=== PATIENT | female | born 1950 | race Caucasian/White ===

== ENCOUNTER 2017-11-08 06:49 | Inpatient (IN) | payer OTHER ==
[2017-11-08] MEDS ORDERED: morphine CARPU-JECT 4 MG/1 ML DISP.SYRIN IVPUSH ONE (07:20)
[2017-11-08] MEDS ORDERED: ONDANSETRON 4 MG/2 ML VIAL IVPUSH ONE (07:25)
[2017-11-08] MEDS ORDERED: SODIUM CHLORIDE 1,000 ML IV STA (07:27)
[2017-11-08] MEDS ORDERED: ONDANSETRON 4 MG/2 ML VIAL ONE ×2 (07:52→15:43)
[2017-11-08] MEDS ORDERED: morphine CARPU-JECT 10 MG/1 ML DISP.SYRIN ONE (07:52)
[2017-11-08 08:17] LABS: BASO % 1.4 % (0-2.0); EOS % 0.6 % (0-4.5); HEMATOCRIT 39.4 % (32.4-45.2); HEMOGLOBIN 12.7 GM/dL (10.7-15.3); LYMPH % 10.5 % (8-40); MCH 29.2 pg (25.7-33.7); MCHC 32.4 g/dl (32.0-36.0); MEAN CELL VOLUME 90.2 fl (80-96); MEAN PLT VOLUME 9.8 fl (7.5-11.1); MONO % 5.8 % (3.8-10.2); NEUT % 81.7 % (42.8-82.8); PLATELET COUNT 156 K/MM3 (134-434); RBC 4.36 M/mm3 (3.60-5.2); RDW 14.1 % (11.6-15.6); WHITE BLOOD COUNT 10.8 K/mm3 (4.0-10.0)
--- NOTE | 2017-11-08 08:27 | PDOC ---
History of Present Illness - General History Source: Patient - History of Present Illness Timing/Duration: reports: constant, getting worse Abdominal Pain Onset Location: reports: RLQ Pain Radiation: reports: no radiation <Stan Villatoro - Last Filed: 11/08/17 12:26> <Osbaldo Solorzano - Last Filed: 11/08/17 16:56> - General Chief Complaint: Pain, Acute Stated Complaint: ABD PAIN Time Seen by Provider: 11/08/17 07:19 Past History - Past Medical History COPD: No HTN: Yes - Suicide/Smoking/Psychosocial Hx Smoking History: Never smoked <Stan Villatoro Last Filed: 11/08/17 12:26> <Osbaldo Solorzano - Last Filed: 11/08/17 16:56> - Past Medical History Allergies/Adverse Reactions: Allergies Allergy/AdvReac Type Severity Reaction Status Date / Time No Known Allergies Allergy Verified 11/08/17 07:00 Home Medications: Ambulatory Orders Acetaminophen/Caffeine/Butalb [Fioricet -] 1 tab PO Q4H PRN 11/08/17 Amlodipine Besylate [Norvasc -] 5 mg PO DAILY 11/08/17 Review of Systems - Review of Systems Constitutional: No: Chills, Fever ABD/GI: Yes: Nausea, Vomiting, Abdominal cramping. No: Constipated, Diarrhea : No: Dysuria, Flank Pain, Hematuria <Stan Villatoro Last Filed: 11/08/17 12:26> *Physical Exam - Vital Signs Last Vital Signs Temp Pulse Resp BP Pulse Ox 79 16 131/75 100 11/08/17 07:01 11/08/17 07:01 11/08/17 07:01 11/08/17 07:01 - Physical Exam General Appearance: Yes: Appropriately Dressed, Moderate Distress HEENT: positive: Normal Voice Neck: positive: Supple Respiratory/Chest: negative: Respiratory Distress Gastrointestinal/Abdominal: positive: Normal Bowel Sounds, Tender (2x1cm exquisitely tender indurated mass located below site of inguinal ligament, C/F possible incarcerated/strangulated femoral hernia), Soft. negative: Distended, Guarding, Rebound <Stan Villatoro Last Filed: 11/08/17 12:26> - Vital Signs Last Vital Signs Temp Pulse Resp BP Pulse Ox 79 18 156/89 99 11/08/17 14:26 11/08/17 14:26 11/08/17 14:26 11/08/17 14:26 <Osbaldo Solorzano - Last Filed: 11/08/17 16:56> ED Treatment Course - LABORATORY CBC & Chemistry Diagram: 11/08/17 07:30 11/08/17 07:30 - RADIOLOGY Radiology Studies Ordered: Category Date Time Status ABDOMEN & PELVIS CT WITH CONTR [CT] Stat CT Scan 11/08/17 07:24 Ordered <Stan Villatoro - Last Filed: 11/08/17 12:26> - LABORATORY CBC & Chemistry Diagram: 11/08/17 07:30 11/08/17 07:30 - ADDITIONAL ORDERS Additional order review: Laboratory Results 11/08/17 11/08/17 11/08/17 07:30 07:30 07:30 PT with INR 11.40 INR 1.01 Sodium 142 Potassium 3.6 Chloride 107 Carbon Dioxide 24 Anion Gap 11 BUN 13 Creatinine 0.8 Creat Clearance w eGFR > 60 Random Glucose 115 H Calcium 9.5 Total Bilirubin 0.4 AST 22 ALT 29 Alkaline Phosphatase 116 Total Protein 7.2 Albumin 4.0 Blood Type B POSITIVE Antibody Screen Negative 11/08/17 07:30 RBC 4.36 MCV 90.2 MCHC 32.4 RDW 14.1 MPV 9.8 Neutrophils % 81.7 Lymphocytes % 10.5 Monocytes % 5.8 Eosinophils % 0.6 Basophils % 1.4 - Medications Given in the ED: ED Medications Discontinued Medications Generic Name Dose Route Start Last Admin Trade Name Carlozq PRN Reason Stop Dose Admin Sodium Chloride 1,000 mls @ 1,000 mls/hr 11/08/17 07:27 11/08/17 08:00 Normal Saline - IV 11/08/17 08:26 1,000 mls/hr ASDIR STA Administration Piperacillin Sod/Tazobactam 100 mls @ 200 mls/hr 11/08/17 12:30 11/08/17 12: 32 Sod 4.5 gm/ Dextrose IVPB 11/08/17 12:59 200 mls/hr ONCE ONE Administration Lactated Ringer's 1,000 ml 11/08/17 12:00 11/08/17 12:31 Lactated Ringers Solution IV 11/08/17 12:01 1,000 ml ONCE ONE Administration Morphine Sulfate 4 mg 11/08/17 07:20 11/08/17 07:56 Morphine Injection - IVPUSH 11/08/17 07:21 4 mg ONCE ONE Administration Ondansetron HCl 4 mg 11/08/17 07:25 11/08/17 07:55 Zofran Injection IVPUSH 11/08/17 07:26 4 mg ONCE ONE Administration <Osbaldo Solorzano - Last Filed: 11/08/17 16:56> Medical Decision Making - Medical Decision Making 11/08/17 07:49 67-year-old female, history of hypertension, here with right lower quadrant pain. Patient reports severe right lower quadrant pain since last night that is worsening with multiple episodes of nonbilious, nonbloody, nausea, vomiting. Denies change in bowel movements, fever, chills, dysuria or hematuria. No history of similar pain in the past. Denies history of gallstones or kidney stones. see exam RLQ pain w/ n/v Stable but appears very uncomfortable w/ 2x1 cm area indurated mass to R groin, below site of inguinal ligament C/F possible incarcerated femoral hernia -pain control -zofran -IVF -labs -CT 11/08/17 10:30 CT read as incarcerated femoral hernia w/ resultant SBO and possible ischemia vs inflammation of herniated bowel. Pt stable at present and reports improvement in pain w/ morphine. Labs unremarkable, will send off a lactate level and get emergent surgery consult 11/08/17 10:34 11/08/17 10:[address] Prado of surgery, MD pritchett to ED. Patient made NPO and placed in Trendelenburg with ice pack over right groin as discussed with ED attending 11/08/17 11:30 Pt actively vomiting. Meds and NGT in progress. Dr Dinh currently at bedside. Patient to go the OR now. Abx ordered. Will admit to the hospitalist at this time as per discussion with surgery 11/08/17 12:05 <Stan Villatoro - Last Filed: 11/08/17 12:26> *DC/Admit/Observation/Transfer - Discharge Dispostion Admit: Yes <Stan Villatoro Last Filed: 11/08/17 12:26> <Osbaldo Solorzano - Last Filed: 11/08/17 16:56> Diagnosis at time of Disposition: Incarcerated femoral hernia - Discharge Dispostion Condition at time of disposition: Fair
[2017-11-08 08:28] LABS: INR 1.01 (0.82-1.09); PROTHROMBIN TIME (PATIENT) 11.4 SEC (9.98-11.88)
[2017-11-08 08:44] LABS: ALK PHOS 116 U/L (45-117); ANION GAP 11 (8-16); BILIRUBIN,TOTAL 0.4 mg/dL (0.2-1.0); BLOOD UREA NITROGEN 13 mg/dL (7-18); CALCIUM 9.5 mg/dL (8.5-10.1); CHLORIDE 107 mmol/L (98-107); CO2 24 mmol/L (21-32); CREATININE 0.8 mg/dL (0.55-1.02); GLUCOSE,RANDOM 115 mg/dL (74-106); POTASSIUM 3.6 mmol/L (3.5-5.1); SGOT/AST 22 U/L (15-37); SGPT/ALT 29 U/L (12-78); SODIUM 142 mmol/L (136-145); TOT PROT 7.2 g/dl (6.4-8.2)
--- NOTE | 2017-11-08 11:15 | CONSULT ---
Consult Consult Specialty:: general surgery Referred by:: cade muñoz - ED Reason for Consultation:: right femoral hernia - History of Present Illness Chief Complaint: right groin pain and vomiting History of Present Illness: 67 you female PMH HTN, s/p breast augmentation and tubal ligation is presented to the emergency department with pain in the right groin for 12 hours and multiple 5-6 episodes of bilious vomiting. She reports acute onset right lower abdominal pain last evening 11PM, associated with right leg pain as well with movement. 5-6 episodes of emesis since last night. She has not eaten since yesterday, passing flatus and had a normal BM yesterday. denies fever and chills. she has never had a similar episode of pain and emesis. She has not had previous upper or lower endoscopy. - History Source History Provided By: Patient, Family Member Limitations to Obtaining History: No Limitations - Past Medical History Cardio/Vascular: Yes: HTN - Past Surgical History Past Surgical History: Yes: Tubal Ligation Additional Surgical History: breast augmentation - Alcohol/Substance Use Hx Alcohol Use: Yes (socially ) History of Substance Use: reports: None - Smoking History Smoking history: Never smoked - Social History Place of : Other ([facility]) History of Recent Travel: Yes () Home Medications - Allergies Allergies/Adverse Reactions: Allergies Allergy/AdvReac Type Severity Reaction Status Date / Time No Known Allergies Allergy Verified 11/08/17 07:00 - Home Medications Home Medications: Ambulatory Orders Acetaminophen/Caffeine/Butalb [Fioricet -] 1 tab PO Q4H PRN 11/08/17 Amlodipine Besylate [Norvasc -] 5 mg PO DAILY 11/08/17 Review of Systems - Review of Systems Constitutional: denies: Chills, Fever Eyes: denies: Blurred Vision, Recent Change in Vision HENT: denies: Difficult Swallowing, Throat Pain Neck: denies: Lumps, Tenderness Cardiovascular: denies: Chest Pain, Palpitations Respiratory: denies: Cough, SOB Gastrointestinal: reports: Abdominal Pain, Bloating, Vomiting Genitourinary: denies: Burning, Discharge, Dysuria Musculoskeletal: denies: Back Pain, Muscle Pain, Muscle Weakness Integumentary: denies: Lesions, Rash Psychiatric: denies: Anxiety, Depression Physical Exam Vital Signs: Vital Signs Temperature Pulse Rate 79 11/08/17 07:01 Respiratory Rate 16 11/08/17 07:01 Blood Pressure 131/75 11/08/17 07:01 O2 Sat by Pulse Oximetry (%) 100 11/08/17 07:01 Vital Signs Period Temp Pulse Resp BP Sys/Cervantes Pulse Ox Last 24 Hr 79 16 131/75 100 Constitutional: Yes: Well Nourished, No Distress, Calm Eyes: Yes: Conjunctiva Clear, EOM Intact HENT: Yes: Atraumatic, Normocephalic Neck: Yes: Supple, Trachea Midline Cardiovascular: Yes: Regular Rate and Rhythm, S1, S2 Respiratory: Yes: Regular, CTA Bilaterally Gastrointestinal: Yes: Normal Bowel Sounds, Soft, Tenderness (right lower quadrant, exquisitely tender Right anterior thigh mass, non reducible.) Breast(s): Yes: Breast Implants Extremities: No: Cool, Cyanosis Edema: No Peripheral Pulses WNL: Yes Neurological: Yes: Alert, Oriented Psychiatric: Yes: Alert, Oriented Labs: CBC, BMP 11/08/17 07:30 11/08/17 07:30 Imaging - Results Cat Scan: Report Reviewed, Image Reviewed (incarcerated small bowel right femoral hernia.) Problem List - Problems (1) Incarcerated femoral hernia Assessment/Plan: 67 yo female with PMH HTN s/p breast augmentation surgery presents with acute onset abdominal pain and vomiting for 12 hours. Consistent with incarcerated possible strangulated femoral hernia on right. CT scan shows a loop of bowel. At bedside are two neices and sister. NPO and IVF hydration NGT decompression empiric IV antibiotics antiemetic OR for Exploratory laparotomy, possible bowel ressection, possible ostomy - Discussed with patient risks, benefits and alternatives of proposed porcedure including but not limited to bleeding, infection, injury to adjacent structures , leak or injury, intraabdominal abscess, need for further procedures, ; alternatives include antibiotics, delayed or no surgery - risks of this include failure of nonoperative therapy, perforation, sepsis, recurrence, . Patient desires to proceed with operation - will take to OR for above. Informed consent signed for same. Code(s): K41.30 - UNIL FEMORAL HERNIA, W OBST, W/O GANGRENE, NOT SPCF RECUR (2) Small bowel obstruction with strangulation or infarction Code(s): SFP2523 - (3) HTN (hypertension) Code(s): I10 - ESSENTIAL (PRIMARY) HYPERTENSION (4) Abdominal pain, right lower quadrant Code(s): R10.31 - RIGHT LOWER QUADRANT PAIN
[2017-11-08] MEDS ORDERED: PIPERACILLIN/TAZOB 4.5 GM/100 ML PREMIX BAG IVPB ONE (11:49)
[2017-11-08] MEDS ORDERED: LACTATED RINGERS SOLUTION 1000 ML INFUS.BAG IV ONE (12:00)
[2017-11-08] MEDS ORDERED: LACTATED RINGERS SOLUTION 1,000 ML/1,000 ML INFUS.BAG IV SCH (12:00)
--- NOTE | 2017-11-08 12:21 | HP ---
CHIEF COMPLAINT: " Right lower quadrant pain" PCP: No PCP HISTORY OF PRESENT ILLNESS: Patient is a Yakut speaking 67-year-old female presented to the ED with the chief complaint of Right lower quadrant pain" since 11 pm last night. As per the patient, she ate a small portion for dinner and a sip of wine. At around 11pm, she started having RLQ pain, especially in the right inguinal area, 10/10 in intensity, cramping in nature, non radiating. It was associated with bouts of dry cough, nausea and 4 episodes of vomiting. Vomitus contained mainly food particles, non projectile, non bilious, non bloody. Then she rushed to the ED for further evaluation. Pt reports she never had similar episodes before. Denies chest pain, sob, palpitation, headache, dizziness or loc. Last bowel movement yesterday. Patient also reports to have dysuria, increased frequency of urination since yesterday but denies incontinence or urgency. Sleep/Appetite normal prior to her illness. Has never done colonoscopy before. ER course was notable for: (1) Afebrile, hemodynamically stable, WBC 10.8 (2) CT abdomen/pelvis with contrast: Incarcerated femoral hernia with resultant Small bowel obstruction (3) IV NS, NG tube placement, IV Zosyn Recent Travel: None PAST MEDICAL HISTORY: Hypertension (requiring hospitalization at [place] for hypertensive urgency), active smoker LAST HOSPITALIZATION: 6 months ago for Hypertension. PAST SURGICAL HISTORY: Tubal ligation; Breast implants 15 yrs ago. Social History: Smoking: Active smoker, smokes 1/2 pack since 39 yrs Alcohol: Very rare , just sips of wine Drugs: Denies Family History: Non contributory Allergies No Known Allergies Allergy (Verified 11/08/17 07:00) HOME MEDICATIONS: Home Medications Medication Instructions Recorded Acetaminophen/Caffeine/Butalb 1 tab PO Q4H PRN 11/08/17 [Fioricet -] Amlodipine Besylate [Norvasc -] 5 mg PO DAILY 11/08/17 REVIEW OF SYSTEMS CONSTITUTIONAL: Present: loss of appetite Absent: fever, chills, diaphoresis, generalized weakness, malaise, weight change HEENT: Absent: rhinorrhea, nasal congestion, throat pain, throat swelling, difficulty swallowing, mouth swelling, ear pain, eye pain, visual changes CARDIOVASCULAR: Absent: chest pain, syncope, palpitations, irregular heart rate, lightheadedness , peripheral edema RESPIRATORY: Absent: cough, shortness of breath, dyspnea with exertion, orthopnea, wheezing, stridor, hemoptysis GASTROINTESTINAL: Present: Right lower quadrant abdominal pain, abdominal distension, nausea, vomiting Absent: diarrhea, constipation, melena, hematochezia GENITOURINARY: Absent: dysuria, frequency, urgency, hesitancy, hematuria, flank pain, genital pain MUSCULOSKELETAL: Absent: myalgia, arthralgia, joint swelling, back pain, neck pain SKIN: Absent: rash, itching, pallor HEMATOLOGIC/IMMUNOLOGIC: Absent: easy bleeding, easy bruising, lymphadenopathy, frequent infections ENDOCRINE: Absent: unexplained weight gain, unexplained weight loss, heat intolerance, cold intolerance NEUROLOGIC: Absent: headache, focal weakness or paresthesias, dizziness, unsteady gait, seizure, mental status changes, bladder or bowel incontinence PSYCHIATRIC: Absent: anxiety, depression, suicidal or homicidal ideation, hallucinations. PHYSICAL EXAMINATION Vital Signs - 24 hr 11/08/17 07:01 Pulse Rate 79 Respiratory 16 Rate Blood Pressure 131/75 O2 Sat by Pulse 100 Oximetry (%) GENERAL: Patient is lying in bed, in moderate abdominal pain, Awake, alert, and fully oriented. HEAD: Normal with no signs of trauma. EYES: EOM intact, no pallor or icterus. EARS, NOSE, THROAT: Ears normal. Moist mucous membranes. NECK: Supple. LUNGS: Breath sounds equal, clear to auscultation bilaterally. No wheezes, and no crackles. No accessory muscle use. HEART: Regular rate and rhythm, normal S1 and S2 without murmur, rub or gallop. ABDOMEN: Soft, tender to palpation in the right lower quadrant, not distended, normoactive bowel sounds, guarding +, rebound +. Hepatosplenomegaly couldn't be appreciated, deep palpation couldn't be done due to pain. Right inguinal area: A small mass is felt, mobile, non erythematouc MUSCULOSKELETAL: Normal range of motion at all joints. No bony deformities or tenderness. No CVA tenderness. UPPER EXTREMITIES: 2+ pulses, warm, well-perfused. No cyanosis. No clubbing. No peripheral edema. LOWER EXTREMITIES: 2+ pulses, warm, well-perfused. No calf tenderness. No peripheral edema. NEUROLOGICAL: Cranial nerves II-XII intact. Normal speech. Normal gait. PSYCHIATRIC: Cooperative. Good eye contact. Appropriate mood and affect. SKIN: Warm, dry, normal turgor, no rashes or lesions noted, normal capillary refill. Laboratory Results - last 24 hr 11/08/17 11/08/17 11/08/17 07:30 07:30 07:30 WBC 10.8 H RBC 4.36 Hgb 12.7 Hct 39.4 MCV 90.2 MCH 29.2 MCHC 32.4 RDW 14.1 Plt Count 156 MPV 9.8 Neutrophils % 81.7 Lymphocytes % 10.5 Monocytes % 5.8 Eosinophils % 0.6 Basophils % 1.4 PT with INR 11.40 INR 1.01 Sodium 142 Potassium 3.6 Chloride 107 Carbon Dioxide 24 Anion Gap 11 BUN 13 Creatinine 0.8 Creat Clearance w eGFR > 60 Random Glucose 115 H Calcium 9.5 Total Bilirubin 0.4 AST 22 ALT 29 Alkaline Phosphatase 116 Total Protein 7.2 Albumin 4.0 Blood Type Antibody Screen 11/08/17 07:30 WBC RBC Hgb Hct MCV MCH MCHC RDW Plt Count MPV Neutrophils % Lymphocytes % Monocytes % Eosinophils % Basophils % PT with INR INR Sodium Potassium Chloride Carbon Dioxide Anion Gap BUN Creatinine Creat Clearance w eGFR Random Glucose Calcium Total Bilirubin AST ALT Alkaline Phosphatase Total Protein Albumin Blood Type B POSITIVE Antibody Screen Negative ASSESSMENT/PLAN: Patient is an 67-year-old female with significant past medical history of Hypertension (h/o hypertensive urgency), active smoker presented to the ED with the chief complaint of Right lower quadrant pain" since 11 pm last night was found to have Incarcerated femoral hernia with possible SBO. # Incarcerated femoral hernia with possible SBO. c/o RLQ 10/10 pain x 1day, associated with nausea and [address] abdomen/Pelvis with IV Contrast showed: Incarcerated femoral hernia resulting into small bowel obstruction Pt was taken to the OR from ED for surgery, now currently in surgery Post surgery: Will keep her NPO IV Zosyn 3.375mg, (only if she gets bowel resection) as per ID IV Morphine 2mg Q3H IV Promethazine 12.5mg Q6H PRN (Qtc is prolonged so avoid Zofran and Reglan) Incentive spirometer Appreciate surgical consult # Hypertension-elevated likely due to pain Will hold her home Amlodipine 5mg IV Hydralazine 5mg Q6H PRN if BP > 165mmHg Reevaluate in am and adjust the dose. # Dysuria-r/o UTI UA uncollected IV hydration and antibiotics if she has UTI. # Active smoker Will offer nicotine patch Smoking cessation # Code Status: Full Code # Dispo: Duration of stay unknown. Illness, Investigation and Plan of care explained to the patient and her sister. They verbalized understanding. Case discussed with Dr. Tucker. Visit type - Emergency Visit Emergency Visit: Yes ED Registration Date: 11/08/17 Care time: The patient presented to the Emergency Department on the above date and was hospitalized for further evaluation of their emergent condition. - New Patient This patient is new to me today: Yes Date on this admission: 11/08/17 - Critical Care Critical Care patient: No
[2017-11-08] MEDS ORDERED: PIPERACILLIN/TAZOB 4.5 GM 4.5 GM/100 ML BAG IVPB ONE (12:28)
[2017-11-08] MEDS ORDERED: PIPERACILLIN/TAZOB 4.5 GM 4.5 GM in DEXTROSE 5%-WATER - 100 ML IVPB ONE (12:30)
[2017-11-08 13:52] VITALS: BMI 21.6
--- NOTE | 2017-11-08 14:10 | EKG ---
Test Reason : Blood Pressure : / mmHG Vent. Rate : 086 BPM Atrial Rate : 086 BPM P-R Int : 174 ms QRS Dur : 092 ms QT Int : 402 ms P-R-T Axes : 068 039 052 degrees QTc Int : 481 ms NORMAL SINUS RHYTHM POSSIBLE LEFT ATRIAL ENLARGEMENT NONSPECIFIC T WAVE ABNORMALITY PROLONGED QT ABNORMAL ECG NO PREVIOUS ECGS AVAILABLE CLINICAL CORRELATION IS RECOMMENDED Confirmed by JUD ROOT, ANNIE ([id number]) on 11/08/2017 2:09:57 PM Referred By: Confirmed By:ANNIE RENNER MD
[2017-11-08] MEDS ORDERED: ONDANSETRON 4 MG/2 ML VIAL IVPUSH PRN (14:35)
[2017-11-08] MEDS ORDERED: PROMETHAZINE HCL 25 MG/1 ML VIAL IVPB PRN (14:39)
[2017-11-08] MEDS ORDERED: hydrALAZINE HCL 20 MG/ML VIAL IVPUSH PRN ×2 (14:40→17:23)
[2017-11-08] MEDS ORDERED: MIDAZOLAM HCL 2 MG/2 ML SINGLE DOSE VIAL ONE (14:41)
[2017-11-08] MEDS ORDERED: PROPOFOL 20 ML ONE (14:41)
[2017-11-08] MEDS ORDERED: ROCURONIUM BROMIDE 50 MG/5 ML VIAL ONE (14:41)
--- NOTE | 2017-11-08 15:17 | PN ---
Teaching Attending Note Name of Resident: Yoly Strong ATTENDING PHYSICIAN STATEMENT I saw and evaluated the patient. I reviewed the resident's note and discussed the case with the resident. I agree with the resident's findings and plan as documented. SUBJECTIVE: CC: n/v /R lower abd pain HPI: last night at 11 pm she developed severe RLQ abd pain with N/V of non bloody , non bilious emesis. she did not get relief so she presented to ER. she was in her usual state of health, until last night , last BM yesterday am. no diarhea or constipation . denies any fever or chills . denies Cp or SOB. has cough with vomiting. has h/o HTN with HTN urgency for which she was hospitalized 6 months ago. she took her BP med yesterday am but not htis am Now in ER, she feels a little better after pain meds and NGt. seen by Sx and isscheduled for surgery today OBJECTIVE: NAD , lethargic but arousable. Dry MM, EOMI, round equal pupils , reactive to light. CV: RRR, no mRG Lungs : CTAB ext: no edema or erythema . varicose veins in feet and lower legs . Abd: soft, voluntary guarding, TTP in periumbilical area . and RLQ. a small hard mass 3x2 cm in diameter is palpated in R groin , with TTP. Neuro : symmetric face,, o facial droop, EOMi, round equal pupils , reactive to light , Strength 5/5 in upper nad lower ext proximally and distally. reflexes 2 + knee jerk and biceps b/l EKg : sinus rhythm . QTC 481 . no acute ischemic changes CT, cxray image and report reviewed. ASSESSMENT AND PLAN: 67 y/o lady with h/o HTN, HTN urgency, and breast implants who presented with acute onset severe Abd pain and N/V, and was ofund ot have incarcerated inguinal hernia with SBO. 1- Incarcerated R inguinal hernia , with SBO: now s/p NGT, with imrovement in sx no signs of sepsis - Appreciate sx help. for OR today - pain control with morphine - NPO - Nausea with promethazine due to prolonged QTC - D51/2 Ns - probably will cont NGT after sx - after surgery, if ischemia is found and/or bowel resection is performed then will use zosyn. If no ischemia then no need for Abx . - follow any surgical instructions 2- HTN: BP 153/83 now -while NPO , will give hydralazine IV for SBP > 165, or DBP > 100 - resume norvasc when able to take po 3- DVT px : heparin sq
[2017-11-08] MEDS ORDERED: ceFAZolin SODIUM 1 GM VIAL ONE (15:27)
[2017-11-08] MEDS ORDERED: ceFAZolin SODIUM 1 GM VIAL IVPB ONE (15:30)
[2017-11-08] MEDS ORDERED: DEXAMETHASONE SOD PHOSPHATE 4 MG/1 ML VIAL ONE (15:43)
[2017-11-08] MEDS ORDERED: HYDROmorphone HCL CARPU-JECT 2 MG/1 ML DISP.SYRIN ONE (17:08)
[2017-11-08] MEDS: HYDROmorphone HCL CARPU-JECT 1 MG/1 ML DISP.SYRIN IVPUSH PRN ×2 (17:19→17:29)
--- NOTE | 2017-11-08 17:21 | OP ---
Operative Note - Note: Operative Date: 11/08/17 Pre-Operative Diagnosis: incarcerated femoral hernia with small bowel obstruction Operation: exploratory laparotomy, reduction of strangulated small bowel from femoral canal, segmental ressection of small bowel with primary stapled anastomosis, primapry repair of femoral canal Findings: ischemic segment of mid ileum strangulated in femoral canal Surgeon: Luis Dinh Anesthesiologist/SCORER HELPER: Gracia Herbert Anesthesia: General Estimated Blood Loss (mls): 20 Drains, Volume Out (mls): 400 (may) Fluid Volume Replaced (mls): 1,000 (LR) Operative Report Dictated: Yes
[2017-11-08] MEDS ORDERED: DEXTROSE 5%-0.45% SALINE 1,000 ML IV SCH (18:00)
[2017-11-08] MEDS ORDERED: morphine CARPU-JECT 10 MG/1 ML DISP.SYRIN IVPUSH SCH (18:00)
[2017-11-08] MEDS ORDERED: ONDANSETRON 4 MG/2 ML VIAL IVPB SCH (18:00)
[2017-11-08] MEDS ORDERED: PIPERACILLIN/TAZOB 4.5 GM/100 ML PRE-DOCKED IVPB ONE (18:00)
[2017-11-08] MEDS: DEXTROSE 5%-0.45% SALINE 1,000 ML IV SCH (19:45)
[2017-11-08] MEDS ORDERED: PIPERACILLIN/TAZOB 3.375 GM 50 ML IVPB SCH (19:45)
--- NOTE | 2017-11-08 20:42 | OP ---
DATE OF OPERATION: 11/08/2017 PREOPERATIVE DIAGNOSIS: Incarcerated femoral hernia with small bowel obstruction. POSTOPERATIVE DIAGNOSIS: Strangulated femoral hernia mid-ileum. PROCEDURE: Exploratory laparotomy, reduction of strangulated small bowel from femoral canal, segmental resection of small bowel with a stapled primary anastomosis and a primary femoral hernia canal repair. ATTENDING SURGEON: Luis Dinh MD 3D TECHNOLOGIST: No one. ANESTHESIOLOGIST: Gracia Herbert DO ANESTHESIA TYPE: General. ESTIMATED BLOOD LOSS: Was 20 mL. DRAINS: None. SPECIMENS SENT: Segment of mid-ileum with strangulation. INTRAVENOUS FLUID: Was 1 L. URINE OUTPUT: Was 400 mL. Adkins removed after the case. INDICATION: The patient is a 67-year-old female presenting with acute-onset right lower quadrant abdominal pain and right thigh pain since 11 p.m. last night. She had multiple episodes of vomiting that ensued after the pain started. She had no previous abdominal surgery. Did have some cosmetic surgery and tubal ligation in the [place]. CT scan on the workup revealed a strangulated femoral hernia involving the mid-ileum. She was counseled regarding the findings, consented with the risks, benefits and alternatives for exploration and segmental resection as required. She signed informed consent and was taken for the procedure. DESCRIPTION OF PROCEDURE: The patient was brought to the operating room, placed in the supine position on the operating table with both arms extended 90 degrees perpendicular to the body axis at the shoulder. She was then padded, had bilateral lower extremity SCDs placed. She received Zosyn preoperatively intravenously. She was induced with general anesthesia and endotracheally intubated, at which point we proceeded with standard prep and drape of the anterior abdominal wall to mid-thigh for a lower midline laparotomy approach. Formal timeout was completed with all parties in agreement and the site identified. We proceeded then with marking the skin. An infraumbilical midline laparotomy scar was scribed to the skin. It was then incised with a 15-blade scalpel, deepened and widened through the subcutaneous tissue. Bovie bipolar was used to dissect down to the fascia, obtaining hemostasis throughout the dissection of soft tissues. When the lower rectus midline was identified, the fascia was incised with tenotomy scissors, at which point we proceed to elevate the preperitoneal space with the fascia. Metzenbaum scissors were then used to make a first entry into the peritoneum. A finger was then inserted to clear the abdominal viscera from the anterior abdominal wall. There appeared to be no adhesions. Over the finger, the remainder of the midline lower laparotomy scar was opened. After completing the opening of the fascia, we then began with evisceration of the small bowel. The small bowel was eviscerated from the abdomen except for a lead point that pointed towards the femoral canal on the right side. There were no other defects noted. Bowel appeared minimally distended but viable. The segment that was in the femoral hernia could not be reduced easily. There was distal collapse of small bowel. At this point, given the appearance of the bowel and the nonviability of the associated mesentery, the decision was made to do a segmental resection in order to free the incarcerated hernia at the femoral canal from the site. MEJIA size 60 with a blue load was used to transect the bowel proximally and distally with a double-stapled line. The segment of bowel that was remaining with the 2 afferent and efferent limbs was then debrided from its mesentery using an Impact LigaSure device. With this free, there were 2 cut ends of small bowel, afferent and efferent loops, which would require primary anastomosis. The segment of small bowel which was incarcerated in the femoral then had a small opening extended in the femoral canal. Care was taken to do this on the superior aspect to avoid damaging the femoral vessels. The segment of small bowel, once reduced, it was clear that it was nonviable. It included both garnett of the small bowel and was a lead point for the obstruction. This segment of bowel was sent for pathologic diagnosis. It was so friable that when it was passed off the field, it did rupture, spilling small bowel succus off the field. The site was irrigated. Hemostasis was obtained using cautery. We then proceeded with the primary stapled anastomosis of the mid-ileum. The ends were laid side to side in the antimesenteric order and tacked with 3-0 Vicryl stitch. A size 60 MEJIA was then placed after small controlled enterotomies were made and succus suctioned from each site. The blades of the MEJIA were then opposed to each other, creating a common lumen between the two, and a TA 60 stapler was used to complete the anastomosis. All of the dirty instruments were passed off of the field. Once complete, the anastomosis was checked for patency. The succus appeared to flow from one side to the other. Hemostasis was obtained with Bovie electrocautery. The rent in the mesentery was approximated using a running closure of Vicryl size 2-0 from the mesenteric base all the way up to the bowel wall. The remainder of the bowel was then run from the ligament of Treitz to the ileocecal valve, which could also be identified. The right colon and cecum appeared normal. The NG was assured in place, palpated in the stomach and secured to the nose. We then proceeded to do a brief exploration of the remainder of the abdomen, assuring there were no other hernia defects. The hernia defect at the femoral canal on the right was then approximated using No. 1 Prolene. A [id number] was placed across the site where the redundant preperitoneum was approximated and knotted with a small amount of fascia. This occluded and ablated the space where the bowel had previously been. The integrity of the repair was checked. It appeared to be tight enough to ablate the space without causing compromise to the adjacent vessels. We then proceeded with irrigation of the abdomen. One liter of sterile irrigation was used to clear the field. We then proceeded with a standard closure of the midline fascia using No. 1 looped PDS stitches from the superior and inferior poles. This was done under direct visualization, protecting the bowel out of the way. It was tied in the center and the knot was buried with 3-0 Vicryl. The skin was cleaned and irrigated and the skin was closed with a staple closure. The wound was thoroughly cleaned and dressed using sterile 4 x 4 gauze and tape. The patient was awoken from general anesthesia, having tolerated the procedure well. The Adkins was removed immediately after the surgery. She was extubated in the operating room and returned to recovery in stable condition. MD JAYLENE Cabrera/[id number]
[2017-11-08] MEDS: PIPERACILLIN/TAZOB 3.375 GM 3.375 GM in DEXTROSE 5%-WATER - 100 ML IVPB SCH (21:16)
[2017-11-08] MEDS ORDERED: HEPARIN NA (PORCINE) 5,000 UNITS/ML 1ML VIAL SQ SCH (22:00)
[2017-11-08] MEDS: morphine CARPU-JECT 10 MG/1 ML DISP.SYRIN IVPUSH SCH (23:02)
[2017-11-08] MEDS: HEPARIN NA (PORCINE) 5,000 UNITS/ML 1ML VIAL SQ SCH (23:02)
[2017-11-09] MEDS: ONDANSETRON 4 MG/2 ML VIAL IVPB SCH ×2 (01:34→09:33)
[2017-11-09] MEDS: PIPERACILLIN/TAZOB 3.375 GM 3.375 GM in DEXTROSE 5%-WATER - 100 ML IVPB SCH ×3 (01:45→17:05)
[2017-11-09] MEDS: morphine CARPU-JECT 10 MG/1 ML DISP.SYRIN IVPUSH SCH ×3 (01:54→09:32)
[2017-11-09] MEDS ORDERED: PIPERACILLIN/TAZOB 4.5 GM/100 ML PRE-DOCKED IVPB ONE (03:00)
[2017-11-09] MEDS: DEXTROSE 5%-0.45% SALINE 1,000 ML IV SCH ×2 (06:31→18:40)
[2017-11-09] MEDS: HEPARIN NA (PORCINE) 5,000 UNITS/ML 1ML VIAL SQ SCH ×3 (06:32→22:11)
--- NOTE | 2017-11-09 06:41 | PN ---
Physical Exam: SUBJECTIVE: Patient seen and examined. Pain well controlled. reports abdominal pain only when moving, not at rest. Ambulating and voiding without issues. no fever, chills, nausea, or vomiting. OBJECTIVE: Vital Signs Period Temp Pulse Resp BP Sys/Cervantes Pulse Ox Last 24 Hr 97.0 F-99.6 F 77-92 14-20 123-156/74-92 94-100 GENERAL: nad, aaox3 EYES: sclera anicteric, conjunctiva clear LUNGS: CTAB HEART: rrr, normal s1/s2, no m/r/g ABDOMEN: soft, ND, c/d/i surgical dressing, diffuse ttp around surgical bandage , no guarding or rebound LOWER EXTREMITIES: 2+ DP pulses, wwp, no edema CBC, BMP 11/09/17 08:30 11/09/17 08:30 Hepatic Panel Total Bilirubin 1.2 mg/dL (0.2-1.0) H D 11/09/17 08:30 AST 21 U/L (15-37) 11/09/17 08:30 ALT 24 U/L (12-78) 11/09/17 08:30 Alkaline Phosphatase 70 U/L (45-117) D 11/09/17 08:30 Albumin 3.3 g/dl (3.4-5.0) L 11/09/17 08:30 Active Medications Heparin Sodium (Porcine) (Heparin -) 5,000 unit SQ TID [facility] Last Admin: 11/09/17 22:11 Dose: 5,000 unit Hydralazine HCl (Apresoline Injection -) 5 mg IVPUSH Q6H PRN PRN Reason: HYPERTENSION Dextrose/Sodium Chloride (D5-1/2ns -) 1,000 mls @ 100 mls/hr IV ASDIR [facility] Last Admin: 11/09/17 18:40 Dose: 100 mls/hr Piperacillin Sod/Tazobactam (Sod 3.375 gm/ Dextrose) 100 mls @ 200 mls/hr IVPB Q8H-IV [facility] Last Admin: 11/09/17 17:05 Dose: 200 mls/hr Morphine Sulfate (Morphine Injection -) 2 mg IVPUSH Q4H PRN PRN Reason: PAIN LEVEL 6-10 Last Admin: 11/09/17 22:11 Dose: 2 mg Nicotine (Nicoderm Patch -) 14 mg TD DAILY [facility] Last Admin: 11/09/17 09:33 Dose: 14 mg Ondansetron HCl (Zofran Injection) 4 mg IVPB Q8H PRN PRN Reason: NAUSEA ASSESSMENT/PLAN: 67yo woman, active smoker, with PMH of HTN who p/w acute onset abdominal pain and found to have incarcerated femoral hernia. #POD1 s/p ex-lap, reduction of strangulated small bowel with resection of ischemic section and primary anastomosis Patient low grade temps today -> if worsening WBC or increasing fever, will order blood cultures -NGT management per surgery -NPO, continue D51/2NS@100cc/hr -pain contorl with morphine 2mg ivp q4h -Zofran for nausea -Continue Zosyn per ID (Day 2) -Incentive spirometer #HTN - hydralazine IV PRN #Nicotine dependence - nicotine patch #FEN: IVFs / lytes wnl / NPO #DVT - heparin tid #DISPO: continue m/s FULL code d/w Dr. Garrett Peter MD PGY1 - Internal Medicine Visit type - Emergency Visit Emergency Visit: No - New Patient This patient is new to me today: Yes Date on this admission: 11/09/17 - Critical Care Critical Care patient: No
--- NOTE | 2017-11-09 08:52 | PN ---
Progress Note (short form) - Note Progress Note: Anesthesia Post Op Pt seen and examined S:alert and awake O: Vital Signs Temperature 99.6 F 11/09/17 06:09 Pulse Rate 85 11/09/17 06:09 Respiratory Rate 20 11/09/17 06:09 Blood Pressure 130/77 11/09/17 06:09 O2 Sat by Pulse Oximetry (%) 98 11/08/17 19:55 CBC, BMP 11/08/17 07:30 11/08/17 07:30 A/P; Current Active Problems Abdominal pain, right lower quadrant (Acute) HTN (hypertension) (Acute) Incarcerated femoral hernia (Acute) SBO (small bowel obstruction) (Acute) Small bowel obstruction with strangulation or infarction (Acute) s/p repair of femoral hernia doing well post op Continue current care Keaton Hackett MD
[2017-11-09] MEDS ORDERED: PT OWN MED DRAWER 7, Y5N ONE ×2 (09:23→16:53)
[2017-11-09 09:24] LABS: BASO % 0.2 % (0-2.0); HEMATOCRIT 39.5 % (32.4-45.2); HEMOGLOBIN 12.7 GM/dL (10.7-15.3); LYMPH % 6.4 % (8-40); MCH 28.9 pg (25.7-33.7); MCHC 32.2 g/dl (32.0-36.0); MEAN CELL VOLUME 89.8 fl (80-96); MEAN PLT VOLUME 10.7 fl (7.5-11.1); MONO % 8.4 % (3.8-10.2); PLATELET COUNT 147 K/MM3 (134-434); RBC 4.39 M/mm3 (3.60-5.2); RDW 14.1 % (11.6-15.6)
[2017-11-09] MEDS: NICOTINE 14 MG/24 HOURS TOPICAL PATCH TD SCH (09:33)
[2017-11-09 09:53] LABS: ALBUMIN 3.3 g/dl (3.4-5.0); ANION GAP 7 (8-16); BLOOD UREA NITROGEN 8 mg/dL (7-18); CALCIUM 9.2 mg/dL (8.5-10.1); CHLORIDE 103 mmol/L (98-107); CO2 30 mmol/L (21-32); CREATININE 0.9 mg/dL (0.55-1.02); GLUCOSE,RANDOM 112 mg/dL (74-106); POTASSIUM 4.2 mmol/L (3.5-5.1); SGOT/AST 21 U/L (15-37); SGPT/ALT 24 U/L (12-78); SODIUM 140 mmol/L (136-145)
[2017-11-09 09:55] LABS: ALK PHOS 70 U/L (45-117); BILIRUBIN,TOTAL 1.2 mg/dL (0.2-1.0); TOT PROT 6.5 g/dl (6.4-8.2)
--- NOTE | 2017-11-09 11:58 | PN ---
Progress Note, Physician History of Present Illness: 67 you female PMH HTN, s/p breast augmentation and tubal ligation is DR presented to the emergency department with pain in the right groin for 12 hours and multiple 5-6 episodes of bilious vomiting. She has been stable postoperatively. ambulating and voiding spontaneously. non more emesis. no flatus or BM yet. - Current Medication List Current Medications: Active Medications Heparin Sodium (Porcine) (Heparin -) 5,000 unit SQ TID [facility] Last Admin: 11/09/17 06:32 Dose: 5,000 unit Hydralazine HCl (Apresoline Injection -) 5 mg IVPUSH Q6H PRN PRN Reason: HYPERTENSION Dextrose/Sodium Chloride (D5-1/2ns -) 1,000 mls @ 100 mls/hr IV ASDIR [facility] Last Admin: 11/09/17 06:31 Dose: 100 mls/hr Piperacillin Sod/Tazobactam (Sod 3.375 gm/ Dextrose) 100 mls @ 200 mls/hr IVPB Q8H-IV [facility] Last Admin: 11/09/17 09:34 Dose: 200 mls/hr Morphine Sulfate (Morphine Injection -) 4 mg IVPUSH Q4H-IV [facility] Last Admin: 11/09/17 09:32 Dose: 4 mg Nicotine (Nicoderm Patch -) 14 mg TD DAILY [facility] Last Admin: 11/09/17 09:33 Dose: 14 mg Ondansetron HCl (Zofran Injection) 8 mg IVPB Q8H-IV [facility] Last Admin: 11/09/17 09:33 Dose: Not Given - Objective Vital Signs: Vital Signs Temperature 100.8 F H 11/09/17 10:03 Pulse Rate 92 H 11/09/17 10:03 Respiratory Rate 20 11/09/17 10:03 Blood Pressure 143/77 11/09/17 10:03 O2 Sat by Pulse Oximetry (%) 98 11/09/17 09:00 Vital Signs Period Temp Pulse Resp BP Sys/Cervantes Pulse Ox Last 24 Hr 98.3 F-100.9 F 85-97 18-20 126-143/76-86 98 Intake & Output 11/09/17 11/09/17 11/09/17 07:59 15:59 23:59 Intake Total 1200 Output Total 650 600 200 Balance -650 -600 1000 Intake: IV 1000 D5-1/2Ns - 1,000 ml @ 100 1000 mls/hr IV ASDIR [facility] Rx#: [id number] IVPB 200 Output: Gastric Drainage 300 200 Urine 350 600 Void 350 600 Other: Voiding Method Toilet # Unmeasured Voids Void 1 Constitutional: Yes: Well Nourished, No Distress, Calm Eyes: Yes: Conjunctiva Clear, EOM Intact HENT: Yes: Atraumatic, Normocephalic, Other (ngt left nares) Cardiovascular: Yes: Regular Rate and Rhythm, S1, S2 Respiratory: Yes: Regular, CTA Bilaterally Gastrointestinal: Yes: Normal Bowel Sounds, Soft, Tenderness (roxy-incisional) Wound/Incision: Yes: Clean/Dry, Dressing Dry and Intact (lower midline) Neurological: Yes: Alert, Oriented Psychiatric: Yes: Alert, Oriented Labs: CBC, BMP 11/09/17 08:30 11/09/17 08:30 INR, PTT INR 1.01 (0.82-1.09) 11/08/17 07:30 Problem List - Problems (1) Incarcerated femoral hernia Assessment/Plan: 67 yo female with PMH HTN s/p breast augmentation surgery presents with acute onset abdominal pain and vomiting for 12 hours. Consistent with incarcerated possible strangulated femoral hernia on right. CT scan shows a loop of bowel. s/p exploratory laparotomy, ressection of small bowel and repair of femoral hernia. POD#1 NPO and IVF hydration NGT decompression empiric IV antibiotics antiemetic adequate analgesia OOB and ambulate encourage incentive spirometer Code(s): K41.30 - UNIL FEMORAL HERNIA, W OBST, W/O GANGRENE, NOT SPCF RECUR (2) Small bowel obstruction with strangulation or infarction Code(s): VYQ8622 - (3) HTN (hypertension) Code(s): I10 - ESSENTIAL (PRIMARY) HYPERTENSION (4) Abdominal pain, right lower quadrant Code(s): R10.31 - RIGHT LOWER QUADRANT PAIN
[2017-11-09] MEDS ORDERED: ONDANSETRON 4 MG/2 ML VIAL IVPB PRN (11:59)
--- NOTE | 2017-11-09 13:00 | CON.ID ---
Consult Consult Specialty:: infectious diseases Referred by:: Reason for Consultation:: incarcerated hernia,post op - History of Present Illness Chief Complaint: abd pain History of Present Illness: 67 you female PMH HTN, s/p breast augmentation and tubal ligation is admitted with pain in the right groin for 12 hours and multiple 5-6 episodes of bilious vomiting. She reports acute onset right lower abdominal pain , associated with right leg pain as well with movement. 5-6 episodes of emesis . denies fever and chills. she has never had a similar episode of pain and emesis. patient was worked up and found to have incarcerated femoral hernia and was taken to the operating room by surgery and underwent surgery post stable - History Source History Provided By: Patient, Medical Record Limitations to Obtaining History: Language Barrier - Past Medical History Cardio/Vascular: Yes: HTN - Past Surgical History Past Surgical History: Yes: Tubal Ligation Additional Surgical History: breast augmentation - Alcohol/Substance Use Hx Alcohol Use: Yes (socially ) History of Substance Use: reports: None - Smoking History Smoking history: Never smoked - Social History History of Recent Travel: Yes () Home Medications - Allergies Allergies/Adverse Reactions: Allergies Allergy/AdvReac Type Severity Reaction Status Date / Time No Known Allergies Allergy Verified 11/08/17 07:00 - Home Medications Home Medications: Ambulatory Orders Acetaminophen/Caffeine/Butalb [Fioricet -] 1 tab PO Q4H PRN 11/08/17 Amlodipine Besylate [Norvasc -] 5 mg PO DAILY 11/08/17 Review of Systems - Review of Systems Constitutional: reports: No Symptoms Eyes: reports: No Symptoms HENT: reports: No Symptoms Neck: reports: No Symptoms Cardiovascular: reports: No Symptoms Respiratory: reports: No Symptoms Gastrointestinal: reports: Abdominal Pain Musculoskeletal: reports: No Symptoms Integumentary: reports: No Symptoms Neurological: reports: No Symptoms Endocrine: reports: No Symptoms Hematology/Lymphatic: reports: No Symptoms Psychiatric: reports: No Symptoms Physical Exam Vital Signs: Vital Signs Temperature 100.8 F H 11/09/17 10:03 Pulse Rate 92 H 11/09/17 10:03 Respiratory Rate 20 11/09/17 10:03 Blood Pressure 143/77 11/09/17 10:03 O2 Sat by Pulse Oximetry (%) 98 11/09/17 09:00 Constitutional: Yes: Calm, Mild Distress Eyes: Yes: Conjunctiva Clear Cardiovascular: Yes: Regular Rate and Rhythm Respiratory: Yes: Regular, CTA Bilaterally Gastrointestinal: Yes: Tenderness (operated site) Musculoskeletal: Yes: WNL Extremities: Yes: WNL Neurological: Yes: Alert, Oriented Psychiatric: Yes: Alert, Oriented Labs: CBC, BMP 11/09/17 08:30 11/09/17 08:30 Imaging - Results Chest X-ray: Report Reviewed, Image Reviewed Cat Scan: Report Reviewed, Image Reviewed Assessment/Plan Problem List - Problems (1) Incarcerated femoral hernia Code(s): K41.30 - UNIL FEMORAL HERNIA, W OBST, W/O GANGRENE, NOT SPCF RECUR (2) Small bowel obstruction with strangulation or infarction Code(s): VFJ7430 - (3) HTN (hypertension) Code(s): I10 - ESSENTIAL (PRIMARY) HYPERTENSION (4) Abdominal pain, right lower quadrant Code(s): R10.31 - RIGHT LOWER QUADRANT PAIN leukocytosis patient is post op stable,wbc has increased plan continue zosyn hydration rest as per surgery and primary team
[2017-11-09 17:06] LABS: URINE APPEARANCE CLEAR; URINE BILIRUBIN NEGATIVE (NEGATIVE); URINE BLOOD 2+ (NEGATIVE); URINE COLOR LTYELLOW; URINE GLUCOSE (UA) NEGATIVE (NEGATIVE); URINE KETONE NEGATIVE (NEGATIVE); URINE LEUK ESTERASE NEGATIVE (NEGATIVE); URINE NITRITE NEGATIVE (NEGATIVE); URINE PROTEIN NEGATIVE (NEGATIVE); URINE UROBILINOGEN NEGATIVE mg/dL (0.2-1.0)
[2017-11-09 17:41] LABS: URINE MUCUS RARE
--- NOTE | 2017-11-09 19:48 | PN ---
Teaching Attending Note Name of Resident: Shannan Peter ATTENDING PHYSICIAN STATEMENT I saw and evaluated the patient. I reviewed the resident's note and discussed the case with the resident. I agree with the resident's findings and plan as documented. SUBJECTIVE: pain has improved OBJECTIVE: NAD , more awake ,MMM CV: RRR, no mRG Lungs : CTAB Ext: no edema or erythema . varicose veins in feet and lower legs . Abd: soft, TTP in all quadrants, no rebound tenderness or guarding , R inguinal nodule felt , ( smaller than yesterday ) ASSESSMENT AND PLAN: 67 y/o lady with h/o HTN, HTN urgency, and breast implants who presented with acute onset severe Abd pain and N/V, and was ofund ot have incarcerated inguinal hernia with SBO. 1- Incarcerated R inguinal hernia, with SBO: s/p release of bowel loop, resectionof ischemic bowel and primary anastomosis fever and increased leukcytosis , could be due to reaction after sx , but need to monitor for worsening sepsis - cont zosyn - NPO - NGT -COnt IVF - if she contto have fever , or increased leukocytosis , eri send blood cx 2- HTN: stable BP. while NPO can use HZN PRN 3- DVT px : heparin sq HLOC
[2017-11-09] MEDS: morphine CARPU-JECT 10 MG/1 ML DISP.SYRIN IVPUSH PRN (22:11)
[2017-11-10] MEDS: PIPERACILLIN/TAZOB 3.375 GM 3.375 GM in DEXTROSE 5%-WATER - 100 ML IVPB SCH ×3 (01:47→17:34)
[2017-11-10] MEDS: HEPARIN NA (PORCINE) 5,000 UNITS/ML 1ML VIAL SQ SCH ×3 (06:37→21:19)
[2017-11-10] MEDS: DEXTROSE 5%-0.45% SALINE 1,000 ML IV SCH ×3 (06:45→18:28)
[2017-11-10] MEDS: morphine CARPU-JECT 10 MG/1 ML DISP.SYRIN IVPUSH PRN (06:45)
[2017-11-10 08:19] LABS: BASO % 0.3 % (0-2.0); HEMATOCRIT 38.7 % (32.4-45.2); HEMOGLOBIN 12.5 GM/dL (10.7-15.3); LYMPH % 5.8 % (8-40); MCHC 32.3 g/dl (32.0-36.0); MEAN CELL VOLUME 89.7 fl (80-96); MEAN PLT VOLUME 10.9 fl (7.5-11.1); NEUT % 85.9 % (42.8-82.8); PLATELET COUNT 137 K/MM3 (134-434); RBC 4.32 M/mm3 (3.60-5.2); RDW 14.1 % (11.6-15.6); WHITE BLOOD COUNT 12.4 K/mm3 (4.0-10.0)
--- NOTE | 2017-11-10 08:22 | PN ---
Physical Exam: SUBJECTIVE: Patient seen and examined. Pain well controlled. Abdominal pain with movement. Ambulating and voiding spontaneously. No BM or flatus yet. No fever, chills, nausea, or vomiting. OBJECTIVE: Vital Signs Period Temp Pulse Resp BP Sys/Cervantes Pulse Ox Last 24 Hr 99.7 F-100.9 F 92-98 18-20 126-148/76-90 98-98 Intake & Output 11/07/17 11/08/17 11/09/17 11/10/17 23:59 23:59 23:59 23:59 Intake Total 2950 2400 Output Total 720 1450 1000 Balance 2230 950 -1000 Weight 58.967 kg GENERAL: nad, aaox3 EYES: sclera anicteric, conjunctiva clear ENT: NGT draining bilious fluid LUNGS: CTAB HEART: rrr, normal s1/s2, no m/r/g ABDOMEN: soft, ND, c/d/i surgical dressing, diffuse ttp around surgical bandage , no guarding or rebound LOWER EXTREMITIES: 2+ DP pulses, wwp, no edema CBC, BMP 11/10/17 06:00 11/10/17 06:00 Hepatic Panel Total Bilirubin 1.2 mg/dL (0.2-1.0) H 11/10/17 06:00 AST 18 U/L (15-37) 11/10/17 06:00 ALT 23 U/L (12-78) 11/10/17 06:00 Alkaline Phosphatase 69 U/L (45-117) 11/10/17 06:00 Albumin 3.1 g/dl (3.4-5.0) L 11/10/17 06:00 Active Medications Benzocaine/Butamben/Tetracaine HCl (Cetacaine Lavelle -) 1 spray TP DAILY [facility] Benzocaine/Menthol (Cepacol Lozenge -) 1 each MM PRN PRN PRN Reason: SORE THROAT Heparin Sodium (Porcine) (Heparin -) 5,000 unit SQ TID [facility] Last Admin: 11/10/17 13:45 Dose: 5,000 unit Hydralazine HCl (Apresoline Injection -) 5 mg IVPUSH Q6H PRN PRN Reason: HYPERTENSION Dextrose/Sodium Chloride (D5-1/2ns -) 1,000 mls @ 100 mls/hr IV ASDIR [facility] Last Admin: 11/10/17 06:45 Dose: 100 mls/hr Piperacillin Sod/Tazobactam (Sod 3.375 gm/ Dextrose) 100 mls @ 200 mls/hr IVPB Q8H-IV [facility] Last Admin: 11/10/17 09:33 Dose: 200 mls/hr Morphine Sulfate (Morphine Injection -) 2 mg IVPUSH Q4H PRN PRN Reason: PAIN LEVEL 6-10 Last Admin: 11/10/17 06:45 Dose: 2 mg Nicotine (Nicoderm Patch -) 14 mg TD DAILY [facility] Last Admin: 11/10/17 09:33 Dose: 14 mg Ondansetron HCl (Zofran Injection) 4 mg IVPB Q8H PRN PRN Reason: NAUSEA ASSESSMENT/PLAN: 67yo woman, active smoker, with PMH of HTN who p/w acute onset abdominal pain and found to have incarcerated femoral hernia. #POD2 s/p ex-lap, reduction of strangulated small bowel with resection of ischemic section and primary anastomosis Patient low grade temps today -> if worsening WBC or increasing fever, will order blood cultures -NGT management per surgery -NPO, continue D51/2NS@100cc/hr -pain contorl with morphine 2mg ivp q4h -Zofran for nausea -Continue Zosyn per ID (Day 3) -Incentive spirometer #HTN - hydralazine IV PRN #Nicotine dependence - nicotine patch #FEN: IVFs / K repleted / NPO #DVT - heparin tid #DISPO: continue m/s FULL code d/w Dr. Margoth Peter MD PGY1 - Internal Medicine Visit type - Emergency Visit Emergency Visit: No - New Patient This patient is new to me today: No - Critical Care Critical Care patient: No
[2017-11-10 08:34] LABS: ALBUMIN 3.1 g/dl (3.4-5.0); ANION GAP 9 (8-16); BLOOD UREA NITROGEN 8 mg/dL (7-18); CALCIUM 8.7 mg/dL (8.5-10.1); CHLORIDE 101 mmol/L (98-107); CO2 27 mmol/L (21-32); CREATININE 0.8 mg/dL (0.55-1.02); GLUCOSE,RANDOM 144 mg/dL (74-106); SGOT/AST 18 U/L (15-37); SGPT/ALT 23 U/L (12-78); SODIUM 137 mmol/L (136-145)
[2017-11-10 08:36] LABS: ALK PHOS 69 U/L (45-117); BILIRUBIN,TOTAL 1.2 mg/dL (0.2-1.0); TOT PROT 6.6 g/dl (6.4-8.2)
[2017-11-10] MEDS ORDERED: PT OWN MED DRAWER 7, Y5N ONE ×3 (09:32→20:27)
[2017-11-10] MEDS: NICOTINE 14 MG/24 HOURS TOPICAL PATCH TD SCH (09:33)
--- NOTE | 2017-11-10 10:10 | PN ---
Progress Note, Physician Chief Complaint: right groin pain History of Present Illness: 67 you female PMH HTN, s/p breast augmentation and tubal ligation is DR presented to the emergency department with pain in the right groin for 12 hours and multiple 5-6 episodes of bilious vomiting. She has been stable postoperatively. ambulating and voiding spontaneously. non more emesis. no flatus or BM yet. - Current Medication List Current Medications: Active Medications Heparin Sodium (Porcine) (Heparin -) 5,000 unit SQ TID [facility] Last Admin: 11/10/17 06:37 Dose: 5,000 unit Hydralazine HCl (Apresoline Injection -) 5 mg IVPUSH Q6H PRN PRN Reason: HYPERTENSION Dextrose/Sodium Chloride (D5-1/2ns -) 1,000 mls @ 100 mls/hr IV ASDIR [facility] Last Admin: 11/10/17 06:45 Dose: 100 mls/hr Piperacillin Sod/Tazobactam (Sod 3.375 gm/ Dextrose) 100 mls @ 200 mls/hr IVPB Q8H-IV [facility] Last Admin: 11/10/17 09:33 Dose: 200 mls/hr Morphine Sulfate (Morphine Injection -) 2 mg IVPUSH Q4H PRN PRN Reason: PAIN LEVEL 6-10 Last Admin: 11/10/17 06:45 Dose: 2 mg Nicotine (Nicoderm Patch -) 14 mg TD DAILY [facility] Last Admin: 11/10/17 09:33 Dose: 14 mg Ondansetron HCl (Zofran Injection) 4 mg IVPB Q8H PRN PRN Reason: NAUSEA - Objective Vital Signs: Vital Signs Temperature 99.4 F 11/10/17 09:30 Pulse Rate 96 H 11/10/17 09:30 Respiratory Rate 20 11/10/17 09:30 Blood Pressure 142/77 11/10/17 09:30 O2 Sat by Pulse Oximetry (%) 98 11/09/17 21:00 Vital Signs Period Temp Pulse Resp BP Sys/Cervantes Pulse Ox Last 24 Hr 99.4 F-100.9 F 96-100 18-20 132-154/77-96 98 Intake & Output 11/10/17 11/10/17 11/10/17 07:59 15:59 23:59 Output Total 200 500 Balance -200 -500 Output: Gastric Drainage 200 Urine 500 Void 500 Other: Voiding Method Toilet Bowel Movement No Constitutional: Yes: Well Nourished, No Distress, Calm Eyes: Yes: Conjunctiva Clear, EOM Intact HENT: Yes: Atraumatic, Normocephalic Neck: Yes: Supple, Trachea Midline Cardiovascular: Yes: Regular Rate and Rhythm, S1, S2. No: Murmur Respiratory: Yes: Regular, CTA Bilaterally Gastrointestinal: Yes: Normal Bowel Sounds, Soft, Tenderness (lower midline incsion) ...Rectal Exam: No: Deferred Genitourinary: No: CVA Tenderness - Left, CVA Tenderness - Right Extremities: No: Cool, Cyanosis Edema: No Peripheral Pulses WNL: Yes Peripheral Pulses: Left Doralis Pedis: 2+, Right Dorsalis Pedis: 2+ Integumentary: No: Jaundice Wound/Incision: Yes: Well Approximated, [employer] Intact, Dressing Removed Neurological: Yes: Alert, Oriented Psychiatric: Yes: Alert, Oriented Labs: CBC, BMP 11/10/17 06:00 11/10/17 06:00 INR, PTT INR 1.01 (0.82-1.09) 11/08/17 07:30 - ....Imaging X-ray: Report Reviewed, Image Reviewed (abdomen 2 view show ileus pattern) Problem List - Problems (1) Unilateral femoral hernia, with gangrene, not specified as recurrent Assessment/Plan: 67 yo female with PMH HTN s/p breast augmentation surgery presents with acute onset abdominal pain and vomiting for 12 hours. Consistent with incarcerated possible strangulated femoral hernia on right. CT scan shows a loop of bowel. s/p exploratory laparotomy, ressection of small bowel and repair of femoral hernia POD#2 NPO and IVF hydration NGT decompression empiric IV antibiotics antiemetic adequate analgesia OOB and ambulate encourage incentive spirometer Code(s): K41.40 - UNIL FEMORAL HERNIA, W GANGRENE, NOT SPECIFIED RECURRENT Qualifiers: Recurrence: non-recurrent Qualified Code(s): K41.40 - Unilateral femoral hernia, with gangrene, not specified as recurrent (2) Postoperative ileus Assessment/Plan: serial abdominal xrays encourage ambulation correct electrolytes Code(s): K91.89 - OTH POSTPROCEDURAL COMPLICATIONS AND DISORDERS OF DGSTV SYS; K56.7 - ILEUS, UNSPECIFIED (3) HTN (hypertension) Code(s): I10 - ESSENTIAL (PRIMARY) HYPERTENSION Qualifiers: Hypertension type: essential hypertension Qualified Code(s): I10 - Essential (primary) hypertension (4) Abdominal pain, right lower quadrant Code(s): R10.31 - RIGHT LOWER QUADRANT PAIN
--- NOTE | 2017-11-10 10:38 | PATH ---
Surgical Pathology Report Patient Name: SILVER BRYANT Med. Rec. #: [id number] /Age/Gender: 1950 (Age: 67) / F Account: [id number] Location: [facility] MED/SURG Taken: 11/08/2017 Received: 11/09/2017 Reported: 11/10/2017 Physicians: Luis Dinh M.D. Specimen(s) Received PORTION OF SMALL BOWEL Clinical History Incarcerated right femoral hernia Final Diagnosis PORTION OF SMALL BOWEL, RESECTION: SEGMENT OF SMALL BOWEL SHOWING PARTIAL INFARCTION OF BOWEL WALL. SURGICAL MARGINS APPEAR VIABLE. Electronically Signed Nan Aldridge M.D. Gross Description Received in formalin labeled "portion of small bowel," is an 8.5 cm in length portion of small bowel with 2 stapled mucosal margins and minimal attached fat. The serosa is sultana-brown with a focal brown, dusky, hemorrhagic stricture. The mucosa is hemorrhagic in the area of the stricture. No mucosal masses are identified. Transitional Nurse sections are submitted in 5 cassettes as follows: 4-6-moqufvovyohu stapled mucosal margins; 1-8-ttengzxr from stricture; 5-additional retail field representative mucosa. /11/09/2017 saudi11/09/2017
[2017-11-10 10:51] LABS: POTASSIUM 2.9 mmol/L (3.5-5.1)
[2017-11-10] MEDS ORDERED: BENZOCAINE/MENTH/CETYLPYRD CL 1 EACH LOZENGE MM PRN (10:57)
[2017-11-10] MEDS ORDERED: POTASSIUM CHLORIDE 30 MEQ in SODIUM CHLORIDE 300 ML IVPB ONE (12:15)
[2017-11-10] MEDS: KCL 10 MEQ IVPB 10 MEQ/100 ML INFUS.BAG IVPB SCH ×2 (12:40→14:39)
--- NOTE | 2017-11-10 14:15 | PN ---
Teaching Attending Note Name of Resident: Shannan Peter ATTENDING PHYSICIAN STATEMENT I saw and evaluated the patient. I reviewed the resident's note and discussed the case with the resident. I agree with the resident's findings and plan as documented. SUBJECTIVE: Patient is comfortable with no acute distress, NG tube in place, has pain but very minimal.N [place] speaking lady ,her family at bedside OBJECTIVE: Vital Signs Temperature 99.4 F 11/10/17 09:30 Pulse Rate 96 H 11/10/17 09:30 Respiratory Rate 20 11/10/17 09:30 Blood Pressure 142/77 11/10/17 09:30 O2 Sat by Pulse Oximetry (%) 98 11/09/17 21:00 CBCD WBC 12.4 K/mm3 (4.0-10.0) H 11/10/17 06:00 RBC 4.32 M/mm3 (3.60-5.2) 11/10/17 06:00 Hgb 12.5 GM/dL (10.7-15.3) 11/10/17 06:00 Hct 38.7 % (32.4-45.2) 11/10/17 06:00 MCV 89.7 fl (80-96) 11/10/17 06:00 MCHC 32.3 g/dl (32.0-36.0) 11/10/17 06:00 RDW 14.1 % (11.6-15.6) 11/10/17 06:00 Plt Count 137 K/MM3 (134-434) 11/10/17 06:00 MPV 10.9 fl (7.5-11.1) 11/10/17 06:00 CMP Sodium 137 mmol/L (136-145) 11/10/17 06:00 Potassium 2.9 mmol/L (3.5-5.1) L* D 11/10/17 06:00 Chloride 101 mmol/L (98-107) 11/10/17 06:00 Carbon Dioxide 27 mmol/L (21-32) 11/10/17 06:00 Anion Gap 9 (8-16) 11/10/17 06:00 BUN 8 mg/dL (7-18) 11/10/17 06:00 Creatinine 0.8 mg/dL (0.55-1.02) 11/10/17 06:00 Creat Clearance w eGFR > 60 (>60) 11/10/17 06:00 Random Glucose 144 mg/dL (74-106) H D 11/10/17 06:00 Calcium 8.7 mg/dL (8.5-10.1) 11/10/17 06:00 Total Bilirubin 1.2 mg/dL (0.2-1.0) H 11/10/17 06:00 AST 18 U/L (15-37) 11/10/17 06:00 ALT 23 U/L (12-78) 11/10/17 06:00 Alkaline Phosphatase 69 U/L (45-117) 11/10/17 06:00 Total Protein 6.6 g/dl (6.4-8.2) 11/10/17 06:00 Albumin 3.1 g/dl (3.4-5.0) L 11/10/17 06:00 Current Medications Generic Name Dose Route Start Last Admin Trade Name Freq PRN Reason Stop Dose Admin Benzocaine/Butamben/Tetracaine HCl 1 spray 11/11/17 10:00 Cetacaine [place] - TP DAILY [facility] Benzocaine/Menthol 1 each 11/10/17 10:57 Cepacol Lozenge - MM PRN PRN SORE THROAT Heparin Sodium (Porcine) 5,000 unit 11/08/17 22:00 11/10/17 13:45 Heparin - SQ 5,000 unit TID [facility] Administration Hydralazine HCl 5 mg 11/08/17 17:23 Apresoline Injection - IVPUSH Q6H PRN HYPERTENSION Dextrose/Sodium Chloride 1,000 mls @ 100 mls/hr 11/08/17 18:00 11/10/17 06:45 D5-1/2ns - IV 100 mls/hr ASDIR [facility] Administration Piperacillin Sod/Tazobactam 100 mls @ 200 mls/hr 11/08/17 20:00 11/10/17 09: 33 Sod 3.375 gm/ Dextrose IVPB 200 mls/hr Q8H-IV [facility] Administration Potassium Chloride 30 meq/ 315 mls @ 88.333 mls/hr 11/10/17 12:15 11/10/17 13 :45 Sodium Chloride IVPB 11/10/17 15:48 88.333 mls/hr ONCE ONE Administration Morphine Sulfate 2 mg 11/09/17 11:59 11/10/17 06:45 Morphine Injection - IVPUSH 2 mg Q4H PRN Administration PAIN LEVEL 6-10 Nicotine 14 mg 11/09/17 10:00 11/10/17 09:33 Nicoderm Patch - TD 14 mg DAILY [facility] Administration Ondansetron HCl 4 mg 11/09/17 11:59 Zofran Injection IVPB Q8H PRN NAUSEA Home Medications Medication Instructions Recorded Acetaminophen/Caffeine/Butalb 1 tab PO Q4H PRN 11/08/17 [Fioricet -] Amlodipine Besylate [Norvasc -] 5 mg PO DAILY 11/08/17 PE: Positive for NG tube, sitting on the chair comfortably CHEST: CTA BL Heart: S1S2 positive, no murmur is appreciated abdomen: soft, positive for surgical dressing. ext: pulses are positive ASSESSMENT AND PLAN: Patient is 67 y/o lady with h/o HTN, HTN urgency, and breast implants who presented with acute onset severe Abd pain and N/V, and was ofund ot have incarcerated inguinal hernia with SBO. # POD #2 s/p exploratory laparotomy with ressection of small bowel and repair of Incarcerated femoral hernia As per operative note: patient went for exploratory laparotomy, reduction of strangulated small bowel from femoral canal, segmental resection of small bowel with primary stapled anastomosis, primapry repair of femoral canal with operative findings of ischemic segment of mid ileum strangulated in femoral canal . continue NPO, IVF hydration , NGT decompression , on IV antibiotics empirically Zosyn ,OOB and ambulate encourage incentive spirometer # HTN: stable BP. while NPO can use Hydralazine 5mg IV PRN DVT px : heparin sq ordered KUB
--- NOTE | 2017-11-10 15:54 | PN ---
Progress Note, Physician History of Present Illness: stable no new issues going for imaging studies - Current Medication List Current Medications: Active Medications Benzocaine/Butamben/Tetracaine HCl (Cetacaine [place] -) 1 spray TP DAILY [facility] Benzocaine/Menthol (Cepacol Lozenge -) 1 each MM PRN PRN PRN Reason: SORE THROAT Heparin Sodium (Porcine) (Heparin -) 5,000 unit SQ TID [facility] Last Admin: 11/10/17 13:45 Dose: 5,000 unit Hydralazine HCl (Apresoline Injection -) 5 mg IVPUSH Q6H PRN PRN Reason: HYPERTENSION Dextrose/Sodium Chloride (D5-1/2ns -) 1,000 mls @ 100 mls/hr IV ASDIR [facility] Last Admin: 11/10/17 06:45 Dose: 100 mls/hr Piperacillin Sod/Tazobactam (Sod 3.375 gm/ Dextrose) 100 mls @ 200 mls/hr IVPB Q8H-IV [facility] Last Admin: 11/10/17 09:33 Dose: 200 mls/hr Morphine Sulfate (Morphine Injection -) 2 mg IVPUSH Q4H PRN PRN Reason: PAIN LEVEL 6-10 Last Admin: 11/10/17 06:45 Dose: 2 mg Nicotine (Nicoderm Patch -) 14 mg TD DAILY [facility] Last Admin: 11/10/17 09:33 Dose: 14 mg Ondansetron HCl (Zofran Injection) 4 mg IVPB Q8H PRN PRN Reason: NAUSEA - Objective Vital Signs: Vital Signs Temperature 99.7 F H 11/10/17 14:53 Pulse Rate 100 H 11/10/17 14:53 Respiratory Rate 18 11/10/17 14:53 Blood Pressure 154/96 11/10/17 14:53 O2 Sat by Pulse Oximetry (%) 98 11/09/17 21:00 Constitutional: Yes: Calm, Mild Distress Cardiovascular: Yes: Regular Rate and Rhythm Respiratory: Yes: Regular, CTA Bilaterally Gastrointestinal: Yes: Other Musculoskeletal: Yes: WNL Extremities: Yes: WNL Neurological: Yes: Alert Psychiatric: Yes: Alert, Oriented Labs: CBC, BMP 11/10/17 06:00 11/10/17 06:00 INR, PTT INR 1.01 (0.82-1.09) 11/08/17 07:30 Assessment/Plan Problem List - Problems (1) Incarcerated femoral hernia Code(s): K41.30 - UNIL FEMORAL HERNIA, W OBST, W/O GANGRENE, NOT SPCF RECUR (2) Small bowel obstruction with strangulation or infarction Code(s): QBC2682 - (3) HTN (hypertension) Code(s): I10 - ESSENTIAL (PRIMARY) HYPERTENSION (4) Abdominal pain, right lower quadrant Code(s): R10.31 - RIGHT LOWER QUADRANT PAIN leukocytosis plan continue zosyn hydration rest as per surgery and primary team
[2017-11-11] MEDS: PIPERACILLIN/TAZOB 3.375 GM 3.375 GM in DEXTROSE 5%-WATER - 100 ML IVPB SCH ×3 (01:32→17:30)
[2017-11-11] MEDS: HEPARIN NA (PORCINE) 5,000 UNITS/ML 1ML VIAL SQ SCH ×3 (05:53→21:32)
[2017-11-11 07:40] LABS: BASO % 0.7 % (0-2.0); HEMATOCRIT 38.5 % (32.4-45.2); HEMOGLOBIN 12.6 GM/dL (10.7-15.3); LYMPH % 13.9 % (8-40); MCH 29.3 pg (25.7-33.7); MCHC 32.6 g/dl (32.0-36.0); MEAN CELL VOLUME 89.8 fl (80-96); MEAN PLT VOLUME 10.2 fl (7.5-11.1); MONO % 9.3 % (3.8-10.2); NEUT % 75.1 % (42.8-82.8); PLATELET COUNT 129 K/MM3 (134-434); RBC 4.29 M/mm3 (3.60-5.2); RDW 13.6 % (11.6-15.6); WHITE BLOOD COUNT 9.6 K/mm3 (4.0-10.0)
--- NOTE | 2017-11-11 08:03 | PN ---
Physical Exam: SUBJECTIVE: Patient seen and examined. Pain well controlled. Abdominal pain with movement. Ambulating and voiding spontaneously. No BM or flatus yet. No fever, chills, nausea, or vomiting. OBJECTIVE: Vital Signs Period Temp Pulse Resp BP Sys/Cervantes Pulse Ox Last 24 Hr 99 F-99.7 F 96-100 18-20 142-154/77-96 97-97 GENERAL: nad, aaox3 EYES: sclera anicteric, conjunctiva clear ENT: NGT draining bilious fluid LUNGS: CTAB HEART: rrr, normal s1/s2, no m/r/g ABDOMEN: soft, ND, no erythema of drainage from antoine, diffuse ttp around surgical site, no guarding or rebound LOWER EXTREMITIES: 2+ DP pulses, wwp, no edema CBC, BMP 11/11/17 06:00 11/11/17 06:00 Hepatic Panel Total Bilirubin 1.2 mg/dL (0.2-1.0) H 11/11/17 06:00 AST 18 U/L (15-37) 11/11/17 06:00 ALT 23 U/L (12-78) 11/11/17 06:00 Alkaline Phosphatase 68 U/L (45-117) 11/11/17 06:00 Albumin 2.9 g/dl (3.4-5.0) L 11/11/17 06:00 Imaging: KUB 11/11/16: persistent mild gaseous distention of small bowel loops with gas present in the colon is similar to 11/10/2017 XRAY, compatible with ileus.; free intraperitoneal air beneath R hemidiaphragm no longer visualized. Active Medications Benzocaine/Butamben/Tetracaine HCl (Cetacaine [place] -) 1 spray TP DAILY [facility] Last Admin: 11/11/17 09:13 Dose: Not Given Benzocaine/Menthol (Cepacol Lozenge -) 1 each MM PRN PRN PRN Reason: SORE THROAT Heparin Sodium (Porcine) (Heparin -) 5,000 unit SQ TID [facility] Last Admin: 11/11/17 05:53 Dose: 5,000 unit Hydralazine HCl (Apresoline Injection -) 5 mg IVPUSH Q6H PRN PRN Reason: HYPERTENSION Piperacillin Sod/Tazobactam (Sod 3.375 gm/ Dextrose) 100 mls @ 200 mls/hr IVPB Q8H-IV [facility] Last Admin: 11/11/17 09:13 Dose: 200 mls/hr Dextrose/Sodium Chloride (D5-1/2ns+40 Meq Kcl -) 40 meq in 1,000 mls @ 100 mls/ hr IV ASDIR [facility] Last Admin: 11/11/17 11:59 Dose: 100 mls/hr Potassium Chloride 30 meq/ (Sodium Chloride) 315 mls @ 88.333 mls/hr IVPB ONCE ONE Stop: 11/11/17 13:32 Last Admin: 11/11/17 11:59 Dose: 88.333 mls/hr Morphine Sulfate (Morphine Injection -) 2 mg IVPUSH Q4H PRN PRN Reason: PAIN LEVEL 6-10 Last Admin: 11/10/17 06:45 Dose: 2 mg Nicotine (Nicoderm Patch -) 14 mg TD DAILY [facility] Last Admin: 11/11/17 09:13 Dose: 14 mg Ondansetron HCl (Zofran Injection) 4 mg IVPB Q8H PRN PRN Reason: NAUSEA ASSESSMENT/PLAN: 67yo woman, active smoker, with PMH of HTN who p/w acute onset abdominal pain and found to have incarcerated femoral hernia. #POD3 s/p ex-lap, reduction of strangulated small bowel with resection of ischemic section and primary anastomosis -NGT management per surgery -NPO, continue D51/2NS@100cc/hr -pain control with morphine 2mg ivp q4h -Zofran for nausea -ID consulted. Continue Zosyn per ID (Day 4) -Encouraged incentive spirometer #ileus, no BM or flatus post-operatively -serial abdominal exams and KUBs -OOB to chair #hypokalemia, 3.0 today -Repleting and will repeat BMP in PM #HTN - hydralazine IV PRN #Nicotine dependence - nicotine patch #FEN: IVFs / replete K / NPO #DVT - heparin tid #DISPO: continue m/s FULL code d/w Dr. Margoth Peter MD PGY1 - Internal Medicine Visit type - Emergency Visit Emergency Visit: No - New Patient This patient is new to me today: No - Critical Care Critical Care patient: No
[2017-11-11 08:12] LABS: ALBUMIN 2.9 g/dl (3.4-5.0); ANION GAP 8 (8-16); BLOOD UREA NITROGEN 6 mg/dL (7-18); CALCIUM 8.6 mg/dL (8.5-10.1); CHLORIDE 106 mmol/L (98-107); CO2 26 mmol/L (21-32); CREATININE 0.7 mg/dL (0.55-1.02); GLUCOSE,RANDOM 111 mg/dL (74-106); SGPT/ALT 23 U/L (12-78); SODIUM 140 mmol/L (136-145)
[2017-11-11 08:15] LABS: ALK PHOS 68 U/L (45-117); BILIRUBIN,TOTAL 1.2 mg/dL (0.2-1.0); SGOT/AST 18 U/L (15-37); TOT PROT 6.4 g/dl (6.4-8.2)
[2017-11-11] MEDS ORDERED: PT OWN MED DRAWER 7, Y5N ONE ×2 (09:07→17:22)
[2017-11-11] MEDS: NICOTINE 14 MG/24 HOURS TOPICAL PATCH TD SCH (09:13)
[2017-11-11] MEDS: TETRACAINE/BENZOCAINE/BUTAMBEN 20 GM SPR TP SCH (09:13)
[2017-11-11] MEDS ORDERED: POTASSIUM CHLORIDE 30 MEQ in SODIUM CHLORIDE 300 ML IVPB ONE ×2 (09:59→19:15)
--- NOTE | 2017-11-11 10:01 | PN ---
Progress Note, Physician Chief Complaint: right groin pain History of Present Illness: 67 you female PMH HTN, s/p breast augmentation and tubal ligation is DR presented to the emergency department with pain in the right groin for 12 hours and multiple 5-6 episodes of bilious vomiting. She has been stable postoperatively. Ambulating in the chris and voiding spontaneously. non more emesis. NGT is bothering her throat. no flatus or BM yet she feels it may soon. - Current Medication List Current Medications: Active Medications Benzocaine/Butamben/Tetracaine HCl (Cetacaine [place] -) 1 spray TP DAILY [facility] Last Admin: 11/11/17 09:13 Dose: Not Given Benzocaine/Menthol (Cepacol Lozenge -) 1 each MM PRN PRN PRN Reason: SORE THROAT Heparin Sodium (Porcine) (Heparin -) 5,000 unit SQ TID [facility] Last Admin: 11/11/17 05:53 Dose: 5,000 unit Hydralazine HCl (Apresoline Injection -) 5 mg IVPUSH Q6H PRN PRN Reason: HYPERTENSION Piperacillin Sod/Tazobactam (Sod 3.375 gm/ Dextrose) 100 mls @ 200 mls/hr IVPB Q8H-IV [facility] Last Admin: 11/11/17 09:13 Dose: 200 mls/hr Dextrose/Sodium Chloride (D5-1/2ns+40 Meq Kcl -) 40 meq in 1,000 mls @ 100 mls/ hr IV ASDIR [facility] Potassium Chloride 30 meq/ (Sodium Chloride) 315 mls @ 88.333 mls/hr IVPB ONCE ONE Stop: 11/11/17 13:32 Morphine Sulfate (Morphine Injection -) 2 mg IVPUSH Q4H PRN PRN Reason: PAIN LEVEL 6-10 Last Admin: 11/10/17 06:45 Dose: 2 mg Nicotine (Nicoderm Patch -) 14 mg TD DAILY [facility] Last Admin: 11/11/17 09:13 Dose: 14 mg Ondansetron HCl (Zofran Injection) 4 mg IVPB Q8H PRN PRN Reason: NAUSEA - Objective Vital Signs: Vital Signs Temperature 99 F 11/11/17 06:52 Pulse Rate 97 H 11/11/17 06:52 Respiratory Rate 20 11/11/17 06:52 Blood Pressure 148/94 11/11/17 06:52 O2 Sat by Pulse Oximetry (%) 97 11/10/17 21:00 Vital Signs Period Temp Pulse Resp BP Sys/Cervantes Pulse Ox Last 24 Hr 99 F-99.7 F 97-100 18-20 142-154/82-96 97 Intake & Output 11/10/17 11/11/17 11/11/17 23:59 07:59 15:59 Intake Total 985 900 Output Total 450 Balance 985 450 Intake: IV 485 800 D5-1/2Ns - 1,000 ml @ 100 485 800 mls/hr IV ASDIR [facility] Rx#: [id number] IVPB 500 100 Oral 0 Output: Gastric Drainage 450 Other: Voiding Method Toilet # Unmeasured Voids Void 1 Constitutional: Yes: Well Nourished, No Distress, Calm Eyes: Yes: Conjunctiva Clear, EOM Intact HENT: Yes: Atraumatic, Normocephalic Neck: Yes: Supple, Trachea Midline Cardiovascular: Yes: Regular Rate and Rhythm, S1, S2. No: Murmur Respiratory: Yes: Regular, CTA Bilaterally Gastrointestinal: Yes: Normal Bowel Sounds, Soft, Tenderness (lower midline incison) ...Rectal Exam: No: Deferred Musculoskeletal: No: Muscle Pain, Muscle Weakness Edema: No Peripheral Pulses WNL: Yes Peripheral Pulses: Left Doralis Pedis: 2+, Right Dorsalis Pedis: 2+ Integumentary: No: Jaundice, Rash Wound/Incision: Yes: Clean/Dry, Reddened (slight hyperemia not erythema). No: Draining Neurological: Yes: Alert, Oriented Psychiatric: Yes: Alert, Oriented Labs: CBC, BMP 11/11/17 06:00 11/11/17 06:00 INR, PTT INR 1.01 (0.82-1.09) 11/08/17 07:30 - ....Imaging X-ray: Report Reviewed, Image Reviewed (ileus gas pattern, more colonic air today compared to yesterday) Problem List - Problems (1) Unilateral femoral hernia, with gangrene, not specified as recurrent Assessment/Plan: 67 yo female with PMH HTN s/p breast augmentation surgery presents with acute onset abdominal pain and vomiting for 12 hours. Consistent with incarcerated possible strangulated femoral hernia on right. CT scan shows a loop of bowel. s/p exploratory laparotomy, ressection of small bowel and repair of femoral hernia POD#3 now flatus or BM yet consistent with a postoperative ileus. NPO and IVF hydration NGT decompression - discontinue when bowel function returns empiric IV antibiotics antiemetic (non-prokinetic) adequate analgesia OOB and ambulate encourage incentive spirometer No more dressing or the surgical site needed Code(s): K41.40 - UNIL FEMORAL HERNIA, W GANGRENE, NOT SPECIFIED RECURRENT Qualifiers: Recurrence: non-recurrent Qualified Code(s): K41.40 - Unilateral femoral hernia, with gangrene, not specified as recurrent (2) Postoperative ileus Assessment/Plan: serial abdominal xrays encourage ambulation correct electrolytes Code(s): K91.89 - OTH POSTPROCEDURAL COMPLICATIONS AND DISORDERS OF DGSTV SYS; K56.7 - ILEUS, UNSPECIFIED (3) HTN (hypertension) Code(s): I10 - ESSENTIAL (PRIMARY) HYPERTENSION Qualifiers: Hypertension type: essential hypertension Qualified Code(s): I10 - Essential (primary) hypertension (4) Abdominal pain, right lower quadrant Code(s): R10.31 - RIGHT LOWER QUADRANT PAIN
[2017-11-11] MEDS: D5-1/2NS+40 MEQ KCL - 40 MEQ/1,000 ML INFUS.BAG IV SCH ×2 (11:59→23:09)
[2017-11-11] MEDS ORDERED: KCL 10 MEQ IVPB 10 MEQ/100 ML INFUS.BAG IVPB SCH ×2 (12:45→19:15)
[2017-11-11 18:56] LABS: ANION GAP 10 (8-16); BLOOD UREA NITROGEN 5 mg/dL (7-18); CALCIUM 8.9 mg/dL (8.5-10.1); CHLORIDE 105 mmol/L (98-107); CO2 25 mmol/L (21-32); CREATININE 0.7 mg/dL (0.55-1.02); GLUCOSE,RANDOM 117 mg/dL (74-106); POTASSIUM 3.3 mmol/L (3.5-5.1); SODIUM 140 mmol/L (136-145)
--- NOTE | 2017-11-11 20:18 | PN ---
Teaching Attending Note Name of Resident: Shannan Peter ATTENDING PHYSICIAN STATEMENT I saw and evaluated the patient. I reviewed the resident's note and discussed the case with the resident. I agree with the resident's findings and plan as documented. SUBJECTIVE: Patient is feeling better, Abdominal pain with exertion . No BM or flatus yet. No fever, chills, nausea, or vomiting. OBJECTIVE: Vital Signs Temperature 99.6 F 11/11/17 15:19 Pulse Rate 110 H 11/11/17 15:19 Respiratory Rate 18 11/11/17 15:19 Blood Pressure 145/83 11/11/17 15:19 O2 Sat by Pulse Oximetry (%) 97 11/11/17 09:00 CBCD WBC 9.6 K/mm3 (4.0-10.0) 11/11/17 06:00 RBC 4.29 M/mm3 (3.60-5.2) 11/11/17 06:00 Hgb 12.6 GM/dL (10.7-15.3) 11/11/17 06:00 Hct 38.5 % (32.4-45.2) 11/11/17 06:00 MCV 89.8 fl (80-96) 11/11/17 06:00 MCHC 32.6 g/dl (32.0-36.0) 11/11/17 06:00 RDW 13.6 % (11.6-15.6) 11/11/17 06:00 Plt Count 129 K/MM3 (134-434) L 11/11/17 06:00 MPV 10.2 fl (7.5-11.1) 11/11/17 06:00 CMP Sodium 140 mmol/L (136-145) 11/11/17 18:00 Potassium 3.3 mmol/L (3.5-5.1) L 11/11/17 18:00 Chloride 105 mmol/L (98-107) 11/11/17 18:00 Carbon Dioxide 25 mmol/L (21-32) 11/11/17 18:00 Anion Gap 10 (8-16) 11/11/17 18:00 BUN 5 mg/dL (7-18) L 11/11/17 18:00 Creatinine 0.7 mg/dL (0.55-1.02) 11/11/17 18:00 Creat Clearance w eGFR > 60 (>60) 11/11/17 06:00 Random Glucose 117 mg/dL (74-106) H 11/11/17 18:00 Calcium 8.9 mg/dL (8.5-10.1) 11/11/17 18:00 Total Bilirubin 1.2 mg/dL (0.2-1.0) H 11/11/17 06:00 AST 18 U/L (15-37) 11/11/17 06:00 ALT 23 U/L (12-78) 11/11/17 06:00 Alkaline Phosphatase 68 U/L (45-117) 11/11/17 06:00 Total Protein 6.4 g/dl (6.4-8.2) 11/11/17 06:00 Albumin 2.9 g/dl (3.4-5.0) L 11/11/17 06:00 Current Medications Generic Name Dose Route Start Last Admin Trade Name Freq PRN Reason Stop Dose Admin Benzocaine/Butamben/Tetracaine HCl 1 spray 11/11/17 10:00 11/11/17 09:13 Cetacaine [place] - TP Not Given DAILY [facility] Benzocaine/Menthol 1 each 11/10/17 10:57 Cepacol Lozenge - MM PRN PRN SORE THROAT Heparin Sodium (Porcine) 5,000 unit 11/08/17 22:00 11/11/17 13:46 Heparin - SQ 5,000 unit TID [facility] Administration Hydralazine HCl 5 mg 11/08/17 17:23 Apresoline Injection - IVPUSH Q6H PRN HYPERTENSION Piperacillin Sod/Tazobactam 100 mls @ 200 mls/hr 11/08/17 20:00 11/11/17 17: 30 Sod 3.375 gm/ Dextrose IVPB 200 mls/hr Q8H-IV [facility] Administration Dextrose/Sodium Chloride 40 meq in 1,000 mls @ 100 mls/hr 11/11/17 09:15 02/23 11:59 D5-1/2ns+40 Meq Kcl - IV 100 mls/hr ASDIR [facility] Administration Potassium Chloride 30 meq/ 315 mls @ 88.333 mls/hr 11/11/17 19:15 Sodium Chloride IVPB 11/11/17 22:48 ONCE ONE Morphine Sulfate 2 mg 11/09/17 11:59 11/10/17 06:45 Morphine Injection - IVPUSH 2 mg Q4H PRN Administration PAIN LEVEL 6-10 Nicotine 14 mg 11/09/17 10:00 11/11/17 09:13 Nicoderm Patch - TD 14 mg DAILY [facility] Administration Ondansetron HCl 4 mg 11/09/17 11:59 Zofran Injection IVPB Q8H PRN NAUSEA Home Medications Medication Instructions Recorded Acetaminophen/Caffeine/Butalb 1 tab PO Q4H PRN 11/08/17 [Fioricet -] Amlodipine Besylate [Norvasc -] 5 mg PO DAILY 11/08/17 PE: CHEST: CTA BL Heart: S1S2 positive, no murmur is appreciated abdomen: soft, positive for surgical dressing. ext: pulses are positive rest of PE per resident. X-ray: Report Reviewed, Image Reviewed (ileus gas pattern, more colonic air today compared to yesterday) ASSESSMENT AND PLAN: Patient is 67 y/o lady with h/o HTN, HTN urgency, and breast implants who presented with acute onset severe Abd pain and N/V, and was ofund ot have incarcerated inguinal hernia with SBO. # POD #3 s/p exploratory laparotomy with ressection of small bowel and repair of Incarcerated femoral hernia As per operative note: patient went for exploratory laparotomy, reduction of strangulated small bowel from femoral canal, segmental resection of small bowel with primary stapled anastomosis, primapry repair of femoral canal with operative findings of ischemic segment of mid ileum strangulated in femoral canal . continue NPO, IVF hydration , NGT decompression , on IV antibiotics empirically Zosyn continue ,OOB and ambulate encourage incentive spirometer # Abdominal Xray ileus gas pattern, patient has still not passed gas and no Bm yet will monitor. # HTN: Uncontrolled . while NPO can use Hydralazine 5mg IV PRN DVT px : heparin sq ordered KUB
[2017-11-12] MEDS: PIPERACILLIN/TAZOB 3.375 GM 3.375 GM in DEXTROSE 5%-WATER - 100 ML IVPB SCH ×3 (01:16→17:15)
[2017-11-12] MEDS: HEPARIN NA (PORCINE) 5,000 UNITS/ML 1ML VIAL SQ SCH ×3 (05:46→21:24)
[2017-11-12 08:34] LABS: HEMATOCRIT 38.9 % (32.4-45.2); HEMOGLOBIN 12.6 GM/dL (10.7-15.3); MCH 29.4 pg (25.7-33.7); MCHC 32.5 g/dl (32.0-36.0); MEAN CELL VOLUME 90.4 fl (80-96); MEAN PLT VOLUME 10.2 fl (7.5-11.1); PLATELET COUNT 151 K/MM3 (134-434); RBC 4.31 M/mm3 (3.60-5.2); RDW 13.8 % (11.6-15.6); WHITE BLOOD COUNT 8.8 K/mm3 (4.0-10.0)
--- NOTE | 2017-11-12 08:35 | PN ---
Physical Exam: SUBJECTIVE: Patient seen and examined. Pain well controlled. No BM or flatus yet. Low grade temperature overnight. No fever or chills. OBJECTIVE: Vital Signs Period Temp Pulse Resp BP Sys/Cervantes Pulse Ox Last 24 Hr 99.6 F-100.5 F 93-110 18-20 142-151/83-93 97-97 Intake & Output 11/09/17 11/10/17 11/11/17 11/12/17 23:59 23:59 23:59 23:59 Intake Total 2400 985 1200 1040 Output Total 1450 1000 650 Balance 950 -15 550 1040 GENERAL: nad, aaox3 EYES: sclera anicteric, conjunctiva clear ENT: NGT draining bilious fluid LUNGS: CTAB HEART: rrr, normal s1/s2, no m/r/g ABDOMEN: soft, ND, no erythema of drainage from antoine, diffuse ttp around surgical site, hypoactive bowel sounds LOWER EXTREMITIES: 2+ DP pulses, wwp, no edema CBC, BMP 11/12/17 06:00 11/12/17 06:00 Hepatic Panel Total Bilirubin 1.2 mg/dL (0.2-1.0) H 11/11/17 06:00 AST 18 U/L (15-37) 11/11/17 06:00 ALT 23 U/L (12-78) 11/11/17 06:00 Alkaline Phosphatase 68 U/L (45-117) 11/11/17 06:00 Albumin 2.9 g/dl (3.4-5.0) L 11/11/17 06:00 ASSESSMENT/PLAN: 67yo woman, active smoker, with PMH of HTN who p/w acute onset abdominal pain and found to have incarcerated femoral hernia. #POD4 s/p ex-lap, reduction of strangulated small bowel with resection of ischemic section and primary anastomosis -NGT d/c per Surgery -Diet advanced to Clears -IVF D51/2NS with 20mEq KCl@100cc/hr -pain control with morphine 2mg ivp q4h -Zofran for nausea -ID consulted. Continue Zosyn per ID (Day 5) -Encouraged incentive spirometer #ileus, no BM or flatus yest, KUB today revealed air and stool in rectum, possibly resolving ileus -OOB #HTN - hydralazine IV PRN #Nicotine dependence - nicotine patch #FEN: IVFs / lytes wnl / Na controlled Clears, advance as tolerated #DVT - heparin tid #DISPO: continue m/s FULL code d/w Dr. Margoth Peter MD PGY1 - Internal Medicine Visit type - Emergency Visit Emergency Visit: No - New Patient This patient is new to me today: No - Critical Care Critical Care patient: No
[2017-11-12 09:18] LABS: ANION GAP 10 (8-16); BLOOD UREA NITROGEN 4 mg/dL (7-18); CALCIUM 9.1 mg/dL (8.5-10.1); CHLORIDE 105 mmol/L (98-107); CO2 24 mmol/L (21-32); CREATININE 0.7 mg/dL (0.55-1.02); GLUCOSE,RANDOM 104 mg/dL (74-106); SODIUM 139 mmol/L (136-145)
--- NOTE | 2017-11-12 09:46 | PN ---
Progress Note, Physician Chief Complaint: right groin pain History of Present Illness: 67 you female PMH HTN, s/p breast augmentation and tubal ligation is DR presented to the emergency department with pain in the right groin for 12 hours and multiple 5-6 episodes of bilious vomiting. She has been stable postoperatively. NGT is bothering her throat. no flatus or BM yet. - Current Medication List Current Medications: Active Medications Benzocaine/Butamben/Tetracaine HCl (Cetacaine [place] -) 1 spray TP DAILY [facility] Last Admin: 11/11/17 09:13 Dose: Not Given Benzocaine/Menthol (Cepacol Lozenge -) 1 each MM PRN PRN PRN Reason: SORE THROAT Heparin Sodium (Porcine) (Heparin -) 5,000 unit SQ TID [facility] Last Admin: 11/12/17 05:46 Dose: 5,000 unit Hydralazine HCl (Apresoline Injection -) 5 mg IVPUSH Q6H PRN PRN Reason: HYPERTENSION Piperacillin Sod/Tazobactam (Sod 3.375 gm/ Dextrose) 100 mls @ 200 mls/hr IVPB Q8H-IV [facility] Last Admin: 11/12/17 01:16 Dose: 200 mls/hr Dextrose/Sodium Chloride (D5-1/2ns+40 Meq Kcl -) 40 meq in 1,000 mls @ 100 mls/ hr IV ASDIR [facility] Last Admin: 11/11/17 23:09 Dose: 100 mls/hr Morphine Sulfate (Morphine Injection -) 2 mg IVPUSH Q4H PRN PRN Reason: PAIN LEVEL 6-10 Last Admin: 11/10/17 06:45 Dose: 2 mg Nicotine (Nicoderm Patch -) 14 mg TD DAILY [facility] Last Admin: 11/11/17 09:13 Dose: 14 mg Ondansetron HCl (Zofran Injection) 4 mg IVPB Q8H PRN PRN Reason: NAUSEA - Objective Vital Signs: Vital Signs Temperature 99.7 F H 11/12/17 07:29 Pulse Rate 93 H 11/12/17 07:29 Respiratory Rate 18 11/12/17 07:29 Blood Pressure 146/93 11/12/17 07:29 O2 Sat by Pulse Oximetry (%) 97 11/11/17 21:00 Vital Signs Period Temp Pulse Resp BP Sys/Cervantes Pulse Ox Last 24 Hr 99.6 F-100.5 F 93-110 142-151/83-93 97 Intake & Output 11/11/17 11/12/17 11/12/17 23:59 07:59 15:59 Intake Total 300 800 Output Total 200 Balance 100 800 Intake: IV 300 800 D5-1/2NS+40 MEQ KCL - 40 700 meq In 1,000 ml @ 100 mls /hr IV ASDIR [facility] Rx#: [id number] D5-1/2Ns - 1,000 ml @ 100 300 100 mls/hr IV ASDIR [facility] Rx#: [id number] Output: Gastric Drainage 200 Other: Voiding Method Toilet # Unmeasured Voids Void 1 1 Bowel Movement No No Constitutional: Yes: Well Nourished, No Distress, Calm Eyes: Yes: Conjunctiva Clear, EOM Intact HENT: Yes: Atraumatic, Normocephalic Neck: Yes: Supple, Trachea Midline Cardiovascular: Yes: Regular Rate and Rhythm, S1, S2 Respiratory: Yes: Regular, CTA Bilaterally Gastrointestinal: Yes: Normal Bowel Sounds, Soft, Tenderness (minimal roxy- incisonal) Genitourinary: No: CVA Tenderness - Left, CVA Tenderness - Right Edema: No Peripheral Pulses WNL: Yes Peripheral Pulses: Left Doralis Pedis: 2+, Right Dorsalis Pedis: 2+ Wound/Incision: Yes: Clean/Dry, Well Approximated, Open to air Neurological: Yes: Alert, Oriented Psychiatric: Yes: Alert, Oriented Labs: CBC, BMP 11/12/17 06:00 11/12/17 06:00 INR, PTT INR 1.01 (0.82-1.09) 11/08/17 07:30 - ....Imaging X-ray: Report Reviewed, Image Reviewed (2 views of abdomen all colonic air, no distended loops os small bowel) Problem List - Problems (1) Unilateral femoral hernia, with gangrene, not specified as recurrent Assessment/Plan: 67 yo female with PMH HTN s/p breast augmentation surgery presents with acute onset abdominal pain and vomiting for 12 hours. Consistent with incarcerated possible strangulated femoral hernia on right. CT scan shows a loop of bowel. s/p exploratory laparotomy, ressection of small bowel and repair of femoral hernia POD#4 now flatus or BM yet but imaging now consistent with a resolving postoperative ileus. Clear liquids ordered, advance as tolerated IVF hydration NGT discontinued empiric IV antibiotics antiemetic colace added adequate analgesia OOB and ambulate encourage incentive spirometer No more dressing or the surgical site needed Code(s): K41.40 - UNIL FEMORAL HERNIA, W GANGRENE, NOT SPECIFIED RECURRENT Qualifiers: Recurrence: non-recurrent Qualified Code(s): K41.40 - Unilateral femoral hernia, with gangrene, not specified as recurrent (2) Postoperative ileus Assessment/Plan: serial abdominal xrays encourage ambulation correct electrolytes Code(s): K91.89 - OTH POSTPROCEDURAL COMPLICATIONS AND DISORDERS OF DGSTV SYS; K56.7 - ILEUS, UNSPECIFIED (3) HTN (hypertension) Code(s): I10 - ESSENTIAL (PRIMARY) HYPERTENSION Qualifiers: Hypertension type: essential hypertension Qualified Code(s): I10 - Essential (primary) hypertension (4) Abdominal pain, right lower quadrant Code(s): R10.31 - RIGHT LOWER QUADRANT PAIN
--- NOTE | 2017-11-12 09:58 | PN ---
Progress Note, Physician History of Present Illness: still c/o of abd pain otherwise doing well - Current Medication List Current Medications: Active Medications Benzocaine/Butamben/Tetracaine HCl (Cetacaine [place] -) 1 spray TP DAILY [facility] Last Admin: 11/11/17 09:13 Dose: Not Given Benzocaine/Menthol (Cepacol Lozenge -) 1 each MM PRN PRN PRN Reason: SORE THROAT Heparin Sodium (Porcine) (Heparin -) 5,000 unit SQ TID [facility] Last Admin: 11/12/17 05:46 Dose: 5,000 unit Hydralazine HCl (Apresoline Injection -) 5 mg IVPUSH Q6H PRN PRN Reason: HYPERTENSION Piperacillin Sod/Tazobactam (Sod 3.375 gm/ Dextrose) 100 mls @ 200 mls/hr IVPB Q8H-IV [facility] Last Admin: 11/12/17 01:16 Dose: 200 mls/hr Dextrose/Sodium Chloride (D5-1/2ns+40 Meq Kcl -) 40 meq in 1,000 mls @ 100 mls/ hr IV ASDIR [facility] Last Admin: 11/11/17 23:09 Dose: 100 mls/hr Morphine Sulfate (Morphine Injection -) 2 mg IVPUSH Q4H PRN PRN Reason: PAIN LEVEL 6-10 Last Admin: 11/10/17 06:45 Dose: 2 mg Nicotine (Nicoderm Patch -) 14 mg TD DAILY [facility] Last Admin: 11/11/17 09:13 Dose: 14 mg Ondansetron HCl (Zofran Injection) 4 mg IVPB Q8H PRN PRN Reason: NAUSEA - Objective Vital Signs: Vital Signs Temperature 99.7 F H 11/12/17 07:29 Pulse Rate 93 H 11/12/17 07:29 Respiratory Rate 18 11/12/17 07:29 Blood Pressure 146/93 11/12/17 07:29 O2 Sat by Pulse Oximetry (%) 97 11/11/17 21:00 Constitutional: Yes: Calm, Mild Distress Neck: Yes: Supple Cardiovascular: Yes: Regular Rate and Rhythm Respiratory: Yes: Regular, CTA Bilaterally Gastrointestinal: Yes: Other (absent bowel sounds) Musculoskeletal: Yes: WNL Extremities: Yes: WNL Wound/Incision: Yes: Dressing Dry and Intact Neurological: Yes: Alert, Oriented Psychiatric: Yes: Alert, Oriented Labs: CBC, BMP 11/12/17 06:00 11/12/17 06:00 INR, PTT INR 1.01 (0.82-1.09) 11/08/17 07:30 Assessment/Plan Problem List - Problems (1) Incarcerated femoral hernia Code(s): K41.30 - UNIL FEMORAL HERNIA, W OBST, W/O GANGRENE, NOT SPCF RECUR (2) Small bowel obstruction with strangulation or infarction Code(s): [id number] - (3) HTN (hypertension) Code(s): I10 - ESSENTIAL (PRIMARY) HYPERTENSION (4) Abdominal pain, right lower quadrant Code(s): R10.31 - RIGHT LOWER QUADRANT PAIN leukocytosis plan continue abx close watch on gi function imaging studies hydration rest as per surgery
--- NOTE | 2017-11-12 10:02 | PN ---
Teaching Attending Note Name of Resident: Shannan Peter ATTENDING PHYSICIAN STATEMENT I saw and evaluated the patient. I reviewed the resident's note and discussed the case with the resident. I agree with the resident's findings and plan as documented. SUBJECTIVE: Patient is comfortable with no acute distress. OBJECTIVE: Vital Signs Temperature 99.7 F H 11/12/17 07:29 Pulse Rate 93 H 11/12/17 07:29 Respiratory Rate 18 11/12/17 07:29 Blood Pressure 146/93 11/12/17 07:29 O2 Sat by Pulse Oximetry (%) 97 11/11/17 21:00 CBCD WBC 8.8 K/mm3 (4.0-10.0) 11/12/17 06:00 RBC 4.31 M/mm3 (3.60-5.2) 11/12/17 06:00 Hgb 12.6 GM/dL (10.7-15.3) 11/12/17 06:00 Hct 38.9 % (32.4-45.2) 11/12/17 06:00 MCV 90.4 fl (80-96) 11/12/17 06:00 MCHC 32.5 g/dl (32.0-36.0) 11/12/17 06:00 RDW 13.8 % (11.6-15.6) 11/12/17 06:00 Plt Count 151 K/MM3 (134-434) 11/12/17 06:00 MPV 10.2 fl (7.5-11.1) 11/12/17 06:00 CMP Sodium 139 mmol/L (136-145) 11/12/17 06:00 Potassium 4.0 mmol/L (3.5-5.1) D 11/12/17 06:00 Chloride 105 mmol/L (98-107) 11/12/17 06:00 Carbon Dioxide 24 mmol/L (21-32) 11/12/17 06:00 Anion Gap 10 (8-16) 11/12/17 06:00 BUN 4 mg/dL (7-18) L 11/12/17 06:00 Creatinine 0.7 mg/dL (0.55-1.02) 11/12/17 06:00 Creat Clearance w eGFR > 60 (>60) 11/11/17 06:00 Random Glucose 104 mg/dL (74-106) 11/12/17 06:00 Calcium 9.1 mg/dL (8.5-10.1) 11/12/17 06:00 Total Bilirubin 1.2 mg/dL (0.2-1.0) H 11/11/17 06:00 AST 18 U/L (15-37) 11/11/17 06:00 ALT 23 U/L (12-78) 11/11/17 06:00 Alkaline Phosphatase 68 U/L (45-117) 11/11/17 06:00 Total Protein 6.4 g/dl (6.4-8.2) 11/11/17 06:00 Albumin 2.9 g/dl (3.4-5.0) L 11/11/17 06:00 Current Medications Generic Name Dose Route Start Last Admin Trade Name Freq PRN Reason Stop Dose Admin Benzocaine/Butamben/Tetracaine HCl 1 spray 11/11/17 10:00 11/11/17 09:13 Cetacaine [place] - TP Not Given DAILY [facility] Benzocaine/Menthol 1 each 11/10/17 10:57 Cepacol Lozenge - MM PRN PRN SORE THROAT Heparin Sodium (Porcine) 5,000 unit 11/08/17 22:00 11/12/17 05:46 Heparin - SQ 5,000 unit TID [facility] Administration Hydralazine HCl 5 mg 11/08/17 17:23 Apresoline Injection - IVPUSH Q6H PRN HYPERTENSION Piperacillin Sod/Tazobactam 100 mls @ 200 mls/hr 11/08/17 20:00 11/12/17 01: 16 Sod 3.375 gm/ Dextrose IVPB 200 mls/hr Q8H-IV [facility] Administration Dextrose/Sodium Chloride 40 meq in 1,000 mls @ 100 mls/hr 11/11/17 09:15 02/23 23:09 D5-1/2ns+40 Meq Kcl - IV 100 mls/hr ASDIR [facility] Administration Morphine Sulfate 2 mg 11/09/17 11:59 11/10/17 06:45 Morphine Injection - IVPUSH 2 mg Q4H PRN Administration PAIN LEVEL 6-10 Nicotine 14 mg 11/09/17 10:00 11/11/17 09:13 Nicoderm Patch - TD 14 mg DAILY [facility] Administration Ondansetron HCl 4 mg 11/09/17 11:59 Zofran Injection IVPB Q8H PRN NAUSEA Home Medications Medication Instructions Recorded Acetaminophen/Caffeine/Butalb 1 tab PO Q4H PRN 11/08/17 [Fioricet -] Amlodipine Besylate [Norvasc -] 5 mg PO DAILY 11/08/17 PE: CHEST: CTA BL Heart: S1S2 positive, no murmur is appreciated abdomen: soft, s/p surgical dressing removal as per surgeon. Site is clean ext: pulses are positive rest of PE per resident. X-ray: Report Reviewed, Image Reviewed (ileus gas pattern, more colonic air today compared to yesterday) ASSESSMENT AND PLAN: Patient is 67 y/o lady with h/o HTN, HTN urgency, and breast implants who presented with acute onset severe Abd pain and N/V, and was ofund ot have incarcerated inguinal hernia with SBO. # POD #4 s/p exploratory laparotomy with resection of small bowel and repair of Incarcerated femoral hernia As per operative note: patient went for exploratory laparotomy, reduction of strangulated small bowel from femoral canal, segmental resection of small bowel with primary stapled anastomosis, primapry repair of femoral canal with operative findings of ischemic segment of mid ileum strangulated in femoral canal . As per surgeon advance to clear liquid, off NG tube now . On IV antibiotics empirically Zosyn continue ,OOB and ambulate .Continue to encourage incentive spirometer # Abdominal Xray ileus gas pattern, patient has still not passed gas and no Bm yet will monitor. # HTN: Uncontrolled . Continue home BP meds. DVT px : heparin sq
[2017-11-12] MEDS ORDERED: PT OWN MED DRAWER 7, Y5N ONE (10:10)
[2017-11-12] MEDS: TETRACAINE/BENZOCAINE/BUTAMBEN 20 GM SPR TP SCH (10:13)
[2017-11-12] MEDS: NICOTINE 14 MG/24 HOURS TOPICAL PATCH TD SCH (10:13)
[2017-11-12] MEDS: DOCUSATE SODIUM 100 MG CAPSULE (FP) PO SCH ×2 (15:20→21:23)
[2017-11-12] MEDS: D5-1/2NS+20 MEQ KCL - 20 MEQ/1,000 ML INFUS.BAG IV SCH (15:21)
[2017-11-12] MEDS ORDERED: BISACODYL 10 MG SUPP.RECT PR ONE (15:35)
[2017-11-13] MEDS: PIPERACILLIN/TAZOB 3.375 GM 3.375 GM in DEXTROSE 5%-WATER - 100 ML IVPB SCH ×3 (01:06→17:14)
[2017-11-13] MEDS: HEPARIN NA (PORCINE) 5,000 UNITS/ML 1ML VIAL SQ SCH ×3 (06:14→21:20)
[2017-11-13] MEDS: DOCUSATE SODIUM 100 MG CAPSULE (FP) PO SCH ×3 (06:14→21:20)
[2017-11-13] MEDS: D5-1/2NS+20 MEQ KCL - 20 MEQ/1,000 ML INFUS.BAG IV SCH ×2 (06:22→13:43)
[2017-11-13 08:14] LABS: HEMATOCRIT 37.3 % (32.4-45.2); HEMOGLOBIN 12.2 GM/dL (10.7-15.3); MCH 29.6 pg (25.7-33.7); MCHC 32.9 g/dl (32.0-36.0); MEAN CELL VOLUME 90.2 fl (80-96); MEAN PLT VOLUME 10.4 fl (7.5-11.1); PLATELET COUNT 162 K/MM3 (134-434); RBC 4.13 M/mm3 (3.60-5.2); RDW 13.4 % (11.6-15.6); WHITE BLOOD COUNT 8.1 K/mm3 (4.0-10.0)
[2017-11-13 08:50] LABS: CHLORIDE 104 mmol/L (98-107); POTASSIUM 3.8 mmol/L (3.5-5.1); SODIUM 139 mmol/L (136-145)
[2017-11-13 08:59] LABS: ALBUMIN 2.8 g/dl (3.4-5.0); ALK PHOS 72 U/L (45-117); ANION GAP 11 (8-16); BILIRUBIN,TOTAL 1.1 mg/dL (0.2-1.0); BLOOD UREA NITROGEN 6 mg/dL (7-18); CALCIUM 9.3 mg/dL (8.5-10.1); CO2 24 mmol/L (21-32); CREATININE 0.8 mg/dL (0.55-1.02); GLUCOSE,RANDOM 98 mg/dL (74-106); SGOT/AST 23 U/L (15-37); SGPT/ALT 32 U/L (12-78); TOT PROT 6.3 g/dl (6.4-8.2)
[2017-11-13] MEDS: TETRACAINE/BENZOCAINE/BUTAMBEN 20 GM SPR TP SCH (09:43)
[2017-11-13] MEDS ORDERED: PT OWN MED DRAWER 7, Y5N ONE ×4 (09:46→21:18)
[2017-11-13] MEDS: NICOTINE 14 MG/24 HOURS TOPICAL PATCH TD SCH (09:49)
--- NOTE | 2017-11-13 13:32 | PN ---
Progress Note, Physician History of Present Illness: Covering for Dr. Dinh: POD5 s/p laparotomy with small bowel resection and strangulated right femoral hernia repair Postop ileus has resolved, pt is passing gas and had two BMs. Tolerating full liquid diet, though appetite is still low. Willing to try toast, mashed potatoes , something for dinner. Low grade temp earlier, wbc still normal. On antibiotics. Ambulating, voiding. Pain controlled without meds. She has a small eruption of blisters on her mons pubis, which she states started just after surgery. They do not hurt or itch, and she has never had anything like it before. She is concerned to make sure it goes away. - Current Medication List Current Medications: Active Medications Benzocaine/Butamben/Tetracaine HCl (Cetacaine [place] -) 1 spray TP DAILY [facility] Last Admin: 11/13/17 09:43 Dose: Not Given Docusate Sodium (Colace -) 100 mg PO TID [facility] Last Admin: 11/13/17 06:14 Dose: 100 mg Heparin Sodium (Porcine) (Heparin -) 5,000 unit SQ TID [facility] Last Admin: 11/13/17 06:14 Dose: 5,000 unit Hydralazine HCl (Apresoline Injection -) 5 mg IVPUSH Q6H PRN PRN Reason: HYPERTENSION Piperacillin Sod/Tazobactam (Sod 3.375 gm/ Dextrose) 100 mls @ 200 mls/hr IVPB Q8H-IV [facility] Last Admin: 11/13/17 11:28 Dose: 200 mls/hr Potassium Chloride/Dextrose/Sod Cl (D5-1/2ns+20 Meq Kcl -) 20 meq in 1,000 mls @ 83 mls/hr IV ASDIR [facility] Last Admin: 11/13/17 06:22 Dose: 83 mls/hr Morphine Sulfate (Morphine Injection -) 2 mg IVPUSH Q4H PRN PRN Reason: PAIN LEVEL 6-10 Last Admin: 11/10/17 06:45 Dose: 2 mg Nicotine (Nicoderm Patch -) 14 mg TD DAILY [facility] Last Admin: 11/13/17 09:49 Dose: 14 mg Ondansetron HCl (Zofran Injection) 4 mg IVPB Q8H PRN PRN Reason: NAUSEA - Objective Vital Signs: Vital Signs Temperature 98.6 F 11/13/17 09:40 Pulse Rate 92 H 11/13/17 09:40 Respiratory Rate 20 11/13/17 09:40 Blood Pressure 114/76 11/13/17 09:40 O2 Sat by Pulse Oximetry (%) 98 11/13/17 09:00 Constitutional: Yes: Well Nourished, No Distress, Calm Eyes: Yes: Conjunctiva Clear, EOM Intact HENT: Yes: Atraumatic, Normocephalic Cardiovascular: Yes: Regular Rate and Rhythm. No: Murmur Respiratory: Yes: Regular, CTA Bilaterally Gastrointestinal: Yes: Normal Bowel Sounds, Soft, Tenderness (RLQ without rebound or guarding, minimal incisional). No: Distention Breast(s): Yes: Breast Implants (bilateral) Extremities: No: Cool, Cyanosis Edema: No Integumentary: Yes: Incision (lower midline with antoine), Other (small clustered vesicular eruption with several tiny clear fluid-filled blisters on left mons pubis within hair distribution, not in area where tape was, hair very short but not trimmed/clipped at surgery, not tender, no drainage) Wound/Incision: Yes: Clean/Dry, Well Approximated, Antoine Intact, Open to air. No: Reddened Neurological: Yes: Alert, Oriented Psychiatric: Yes: Alert, Oriented Labs: CBC, BMP 11/13/17 07:47 11/13/17 07:47 Problem List - Problems (1) Unilateral femoral hernia, with gangrene, not specified as recurrent Assessment/Plan: POD5 s/p repair via laparotomy with small bowel resection Pathology shows partial infarction of small bowel wall Pt doing well ambulating, voiding, bowel function has returned advance diet for dinner pain controlled - not using meds, nonnarcotics prn continue antibiotics per ID - will likely go home with Augmentin to complete course incision with antoine c/d/i Code(s): K41.40 - UNIL FEMORAL HERNIA, W GANGRENE, NOT SPECIFIED RECURRENT Qualifiers: Recurrence: non-recurrent Qualified Code(s): K41.40 - Unilateral femoral hernia, with gangrene, not specified as recurrent (2) Postoperative ileus Assessment/Plan: resolved - tolerating liquid diet, will advance as tolerated Code(s): K91.89 - OTH POSTPROCEDURAL COMPLICATIONS AND DISORDERS OF DGSTV SYS; K56.7 - ILEUS, UNSPECIFIED (3) Localized vesicular eruption Assessment/Plan: Pt denies personal history of oral or genital blisters Differential includes herpetic lesion Will consult dermatology, possible viral culture of blister fluid? Code(s): R23.8 - OTHER SKIN CHANGES (4) HTN (hypertension) Code(s): I10 - ESSENTIAL (PRIMARY) HYPERTENSION Qualifiers: Hypertension type: essential hypertension Qualified Code(s): I10 - Essential (primary) hypertension
[2017-11-13] MEDS ORDERED: ACETAMINOPHEN 325 MG TABLET (FP) PO PRN (13:49)
--- NOTE | 2017-11-13 14:36 | PN ---
Progress Note, Physician History of Present Illness: Infectious Disease f/u: Pt states she feels better. Had 2 BMs today, passing gas. Pain controlled. Tmax 100.3F. Noted to have vesicular lesions on pubic region. Pt denies having similar lesions ever before. - Current Medication List Current Medications: Active Medications Acetaminophen (Tylenol -) 650 mg PO Q6H PRN PRN Reason: FEVER OR PAIN Amlodipine Besylate (Norvasc -) 5 mg PO DAILY [facility] Docusate Sodium (Colace -) 100 mg PO BID [facility] Heparin Sodium (Porcine) (Heparin -) 5,000 unit SQ TID [facility] Last Admin: 11/13/17 13:47 Dose: 5,000 unit Hydralazine HCl (Apresoline Injection -) 5 mg IVPUSH Q6H PRN PRN Reason: HYPERTENSION Piperacillin Sod/Tazobactam (Sod 3.375 gm/ Dextrose) 100 mls @ 200 mls/hr IVPB Q8H-IV [facility] Last Admin: 11/13/17 11:28 Dose: 200 mls/hr Nicotine (Nicoderm Patch -) 14 mg TD DAILY [facility] Last Admin: 11/13/17 09:49 Dose: 14 mg Ondansetron HCl (Zofran Injection) 4 mg IVPB Q8H PRN PRN Reason: NAUSEA - Objective Vital Signs: Vital Signs Temperature 98.6 F 11/13/17 09:40 Pulse Rate 92 H 11/13/17 09:40 Respiratory Rate 20 11/13/17 09:40 Blood Pressure 114/76 11/13/17 09:40 O2 Sat by Pulse Oximetry (%) 98 11/13/17 09:00 Constitutional: Yes: No Distress, Calm Neck: Yes: Supple Cardiovascular: Yes: Regular Rate and Rhythm Respiratory: Yes: CTA Bilaterally Gastrointestinal: Yes: Normal Bowel Sounds, Soft, Tenderness (mid abd antoine intact, appropriate tenderness to palpation) Genitourinary: Yes: WNL Extremities: Yes: WNL Integumentary: Yes: WNL, Rash (mons pubis with vesicular lesions , no induration or significant erythema) Wound/Incision: Yes: Clean/Dry, [place] Intact Neurological: Yes: Alert, Oriented Labs: CBC, BMP 11/13/17 07:47 11/13/17 07:47 INR, PTT INR 1.01 (0.82-1.09) 11/08/17 07:30 Problem List - Problems (1) Incarcerated femoral hernia Code(s): K41.30 - UNIL FEMORAL HERNIA, W OBST, W/O GANGRENE, NOT SPCF RECUR (2) HTN (hypertension) Code(s): I10 - ESSENTIAL (PRIMARY) HYPERTENSION Qualifiers: Hypertension type: essential hypertension Qualified Code(s): I10 - Essential (primary) hypertension (3) Postoperative ileus Code(s): K91.89 - OTH POSTPROCEDURAL COMPLICATIONS AND DISORDERS OF DGSTV SYS; K56.7 - ILEUS, UNSPECIFIED (4) Unilateral femoral hernia, with gangrene, not specified as recurrent Code(s): K41.40 - UNIL FEMORAL HERNIA, W GANGRENE, NOT SPECIFIED RECURRENT Qualifiers: Recurrence: non-recurrent Qualified Code(s): K41.40 - Unilateral femoral hernia, with gangrene, not specified as recurrent Assessment/Plan Incarcerated femoral hernia/SB strangulation s/p Ex-lap, reduction, SB resection /anastomosis Vesicular lesions on mons pubis - possible gen herpes - now having BMs - cont. Zosyn for now - start valtrex, consider viral culture of vesicular lesion or herpes pcr from sample pt appears stable, monitor temps - slightly elevated yesterday, currently afebrile d/w Dr Hagen
[2017-11-13] MEDS ORDERED: valACYclovir HCL 500 MG TABLET (FP) PO SCH (14:45)
--- NOTE | 2017-11-13 16:16 | PN ---
Progress Note (short form) - Note Progress Note: Patient is comfortable with no acute distress. No fever or chills, no shortness of breath. Vital Signs Temperature 98.4 F 11/13/17 15:03 Pulse Rate 96 H 11/13/17 15:03 Respiratory Rate 18 11/13/17 15:03 Blood Pressure 121/75 11/13/17 15:03 O2 Sat by Pulse Oximetry (%) 98 11/13/17 09:00 CHEST: CTA BL Heart: S1S2 positive, no murmur is appreciated abdomen: soft, s/p surgical dressing removal as per surgeon. Site is clean, pustule lesions on Mons pubis area( at the shaving site) ext: pulses are positive CBCD WBC 8.1 K/mm3 (4.0-10.0) 11/13/17 07:47 RBC 4.13 M/mm3 (3.60-5.2) 11/13/17 07:47 Hgb 12.2 GM/dL (10.7-15.3) 11/13/17 07:47 Hct 37.3 % (32.4-45.2) 11/13/17 07:47 MCV 90.2 fl (80-96) 11/13/17 07:47 MCHC 32.9 g/dl (32.0-36.0) 11/13/17 07:47 RDW 13.4 % (11.6-15.6) 11/13/17 07:47 Plt Count 162 K/MM3 (134-434) 11/13/17 07:47 MPV 10.4 fl (7.5-11.1) 11/13/17 07:47 CMP Sodium 139 mmol/L (136-145) 11/13/17 07:47 Potassium 3.8 mmol/L (3.5-5.1) 11/13/17 07:47 Chloride 104 mmol/L (98-107) 11/13/17 07:47 Carbon Dioxide 24 mmol/L (21-32) 11/13/17 07:47 Anion Gap 11 (8-16) 11/13/17 07:47 BUN 6 mg/dL (7-18) L D 11/13/17 07:47 Creatinine 0.8 mg/dL (0.55-1.02) 11/13/17 07:47 Creat Clearance w eGFR > 60 (>60) 11/13/17 07:47 Random Glucose 98 mg/dL (74-106) 11/13/17 07:47 Calcium 9.3 mg/dL (8.5-10.1) 11/13/17 07:47 Total Bilirubin 1.1 mg/dL (0.2-1.0) H 11/13/17 07:47 AST 23 U/L (15-37) D 11/13/17 07:47 ALT 32 U/L (12-78) D 11/13/17 07:47 Alkaline Phosphatase 72 U/L (45-117) 11/13/17 07:47 Total Protein 6.3 g/dl (6.4-8.2) L 11/13/17 07:47 Albumin 2.8 g/dl (3.4-5.0) L 11/13/17 07:47 Current Medications Generic Name Dose Route Start Last Admin Trade Name Freq PRN Reason Stop Dose Admin Acetaminophen 650 mg 11/13/17 13:49 Tylenol - PO Q6H PRN FEVER OR PAIN Amlodipine Besylate 5 mg 11/14/17 10:00 Norvasc - PO DAILY ELYSSA Docusate Sodium 100 mg 11/13/17 22:00 Colace - PO BID ELYSSA Heparin Sodium (Porcine) 5,000 unit 11/08/17 22:00 11/13/17 13:47 Heparin - SQ 5,000 unit TID ELYSSA Administration Hydralazine HCl 5 mg 11/08/17 17:23 Apresoline Injection - IVPUSH Q6H PRN HYPERTENSION Piperacillin Sod/Tazobactam 100 mls @ 200 mls/hr 11/08/17 20:00 11/13/17 11: 28 Sod 3.375 gm/ Dextrose IVPB 200 mls/hr Q8H-IV ELYSSA Administration Nicotine 14 mg 11/09/17 10:00 11/13/17 09:49 Nicoderm Patch - TD 14 mg DAILY ELYSSA Administration Ondansetron HCl 4 mg 11/09/17 11:59 Zofran Injection IVPB Q8H PRN NAUSEA Valacyclovir HCl 1,000 mg 11/13/17 22:00 Valtrex - PO BID ELYSSA ASSESSMENT AND PLAN: Patient is 67 y/o lady with h/o HTN, HTN urgency, and breast implants who presented with acute onset severe Abd pain and N/V, and was ofund ot have incarcerated inguinal hernia with SBO. # POD #5 s/p exploratory laparotomy with resection of small bowel and repair of Incarcerated femoral hernia As per operative note: patient went for exploratory laparotomy, reduction of strangulated small bowel from femoral canal, segmental resection of small bowel with primary stapled anastomosis, primary repair of femoral canal with operative findings of ischemic segment of mid ileum strangulated in femoral canal . On IV antibiotics empirically Zosyn continue ,OOB and ambulate .Continue to encourage incentive spirometer # Pustule lesion noted on the monspubis area ( as per nurse earlier of the day, patient had a vesicular lesion but looks more pustule than vesicular) Ordered Valtrex by , discussed with ID , will monitor closely. Discussed with ID , further management as per ID. # Abdominal Xray ileus gas pattern, patient passed gas today and had BM, will repeat the abdominal xray # HTN: Uncontrolled . Continue home BP meds. DVT px : heparin sq Visit type - Emergency Visit Emergency Visit: Yes ED Registration Date: 11/08/17 Care time: The patient presented to the Emergency Department on the above date and was hospitalized for further evaluation of their emergent condition. - New Patient This patient is new to me today: No - Critical Care Critical Care patient: No
[2017-11-13] MEDS: valACYclovir HCL 500 MG TABLET (FP) PO SCH (21:21)
[2017-11-13] MEDS: BACITRACIN/POLYMYXIN B SULFATE 15 GM TUBE TP SCH (23:22)
[2017-11-14] MEDS: PIPERACILLIN/TAZOB 3.375 GM 3.375 GM in DEXTROSE 5%-WATER - 100 ML IVPB SCH ×3 (03:08→17:14)
[2017-11-14] MEDS: HEPARIN NA (PORCINE) 5,000 UNITS/ML 1ML VIAL SQ SCH ×3 (05:55→22:25)
[2017-11-14] MEDS ORDERED: PT OWN MED DRAWER 7, Y5N ONE ×2 (09:56→16:59)
[2017-11-14] MEDS: amLODIPine BESYLATE 5 MG TABLET (FP) PO SCH (10:03)
[2017-11-14] MEDS: NICOTINE 14 MG/24 HOURS TOPICAL PATCH TD SCH (10:03)
[2017-11-14] MEDS: DOCUSATE SODIUM 100 MG CAPSULE (FP) PO SCH (10:03)
[2017-11-14] MEDS: BACITRACIN/POLYMYXIN B SULFATE 15 GM TUBE TP SCH ×2 (10:04→22:24)
[2017-11-14] MEDS: valACYclovir HCL 500 MG TABLET (FP) PO SCH ×2 (10:04→22:24)
--- NOTE | 2017-11-14 10:35 | PN ---
Progress Note, Physician History of Present Illness: Pt states she feels well. Denies fever, chills. Surgical wound site pain controlled. Tolerating liquid diet. No pain/induration of cluster of vesicles on mons pubis - Current Medication List Current Medications: Active Medications Acetaminophen (Tylenol -) 650 mg PO Q6H PRN PRN Reason: FEVER OR PAIN Last Admin: 11/13/17 21:22 Dose: 650 mg Amlodipine Besylate (Norvasc -) 5 mg PO DAILY [facility] Last Admin: 11/14/17 10:03 Dose: 5 mg Bacitracin/Polymyxin B Sulfate (Polysporin Ointment -) 1 applic TP BID [facility] Last Admin: 11/14/17 10:04 Dose: 1 applic Docusate Sodium (Colace -) 100 mg PO BID [facility] Last Admin: 11/14/17 10:03 Dose: 100 mg Heparin Sodium (Porcine) (Heparin -) 5,000 unit SQ TID [facility] Last Admin: 11/14/17 05:55 Dose: 5,000 unit Hydralazine HCl (Apresoline Injection -) 5 mg IVPUSH Q6H PRN PRN Reason: HYPERTENSION Piperacillin Sod/Tazobactam (Sod 3.375 gm/ Dextrose) 100 mls @ 200 mls/hr IVPB Q8H-IV [facility] Last Admin: 11/14/17 10:05 Dose: 200 mls/hr Nicotine (Nicoderm Patch -) 14 mg TD DAILY [facility] Last Admin: 11/14/17 10:03 Dose: 14 mg Ondansetron HCl (Zofran Injection) 4 mg IVPB Q8H PRN PRN Reason: NAUSEA Valacyclovir HCl (Valtrex -) 1,000 mg PO BID [facility] Last Admin: 11/14/17 10:04 Dose: 1,000 mg - Objective Vital Signs: Vital Signs Temperature 98.4 F 11/14/17 09:53 Pulse Rate 92 H 11/14/17 09:53 Respiratory Rate 18 11/14/17 09:53 Blood Pressure 129/71 11/14/17 09:53 O2 Sat by Pulse Oximetry (%) 97 11/13/17 21:00 Constitutional: Yes: No Distress, Calm Neck: Yes: Supple Cardiovascular: Yes: Regular Rate and Rhythm Respiratory: Yes: CTA Bilaterally Gastrointestinal: Yes: Normal Bowel Sounds, Soft Genitourinary: Yes: WNL Integumentary: Yes: Rash (mons pubis) Wound/Incision: Yes: Clean/Dry, [place] Intact Neurological: Yes: Alert Labs: CBC, BMP 11/13/17 07:47 11/13/17 07:47 INR, PTT INR 1.01 (0.82-1.09) 11/08/17 07:30 Problem List - Problems (1) Incarcerated femoral hernia Code(s): K41.30 - UNIL FEMORAL HERNIA, W OBST, W/O GANGRENE, NOT SPCF RECUR (2) HTN (hypertension) Code(s): I10 - ESSENTIAL (PRIMARY) HYPERTENSION Qualifiers: Hypertension type: essential hypertension Qualified Code(s): I10 - Essential (primary) hypertension (3) Postoperative ileus Code(s): K91.89 - OTH POSTPROCEDURAL COMPLICATIONS AND DISORDERS OF DGSTV SYS; K56.7 - ILEUS, UNSPECIFIED (4) Unilateral femoral hernia, with gangrene, not specified as recurrent Code(s): K41.40 - UNIL FEMORAL HERNIA, W GANGRENE, NOT SPECIFIED RECURRENT Qualifiers: Recurrence: non-recurrent Qualified Code(s): K41.40 - Unilateral femoral hernia, with gangrene, not specified as recurrent Assessment/Plan Incarcerated femoral hernia/SB strangulation s/p Ex-lap, reduction, SB resection /anastomosis Vesicular lesions on mons pubis - cont. Zosyn for now - on valtrex pt currently afebrile, stable, tolerating liquid diet
--- NOTE | 2017-11-14 17:13 | PN ---
Progress Note, Physician History of Present Illness: Covering for Dr. Dinh: POD6 s/p laparotomy with small bowel resection and strangulated right femoral hernia repair Pt had three BMs, still somewhat liquid. Tolerating regular diet. Off fluids, on antibiotics. Ambulating, voiding. Pain controlled without meds. Pubic blisters/vesicles without pain, labs pending, on valtrex. Area dressed. Overall feeling very well. Hopes to go home tomorrow. - Current Medication List Current Medications: Active Medications Acetaminophen (Tylenol -) 650 mg PO Q6H PRN PRN Reason: FEVER OR PAIN Last Admin: 11/13/17 21:22 Dose: 650 mg Amlodipine Besylate (Norvasc -) 5 mg PO DAILY [facility] Last Admin: 11/14/17 10:03 Dose: 5 mg Bacitracin/Polymyxin B Sulfate (Polysporin Ointment -) 1 applic TP BID [facility] Last Admin: 11/14/17 10:04 Dose: 1 applic Docusate Sodium (Colace -) 100 mg PO BID [facility] Last Admin: 11/14/17 10:03 Dose: 100 mg Heparin Sodium (Porcine) (Heparin -) 5,000 unit SQ TID [facility] Last Admin: 11/14/17 13:41 Dose: 5,000 unit Hydralazine HCl (Apresoline Injection -) 5 mg IVPUSH Q6H PRN PRN Reason: HYPERTENSION Piperacillin Sod/Tazobactam (Sod 3.375 gm/ Dextrose) 100 mls @ 200 mls/hr IVPB Q8H-IV [facility] Last Admin: 11/14/17 10:05 Dose: 200 mls/hr Nicotine (Nicoderm Patch -) 14 mg TD DAILY [facility] Last Admin: 11/14/17 10:03 Dose: 14 mg Ondansetron HCl (Zofran Injection) 4 mg IVPB Q8H PRN PRN Reason: NAUSEA Valacyclovir HCl (Valtrex -) 1,000 mg PO BID [facility] Last Admin: 11/14/17 10:04 Dose: 1,000 mg - Objective Vital Signs: Vital Signs Temperature 98.0 F 11/14/17 13:32 Pulse Rate 95 H 11/14/17 13:32 Respiratory Rate 18 11/14/17 13:32 Blood Pressure 115/95 11/14/17 13:32 O2 Sat by Pulse Oximetry (%) 100 11/14/17 09:00 Constitutional: Yes: Well Nourished, No Distress, Calm Eyes: Yes: Conjunctiva Clear, EOM Intact HENT: Yes: Atraumatic, Normocephalic Gastrointestinal: Yes: Soft, Tenderness (RLQ and incisional, mild, no R/G). No : Distention Genitourinary: Yes: Other (small dressing on pubic blisters, not removed - per nursing, they look about the same and are nontender) Extremities: No: Cool, Cyanosis Integumentary: Yes: Incision (lower midline with antoine), Other (pubic vesicular eruption) Wound/Incision: Yes: Clean/Dry, Well Approximated, [place] Intact (lower midine abdomen), Open to air. No: Reddened Neurological: Yes: Alert, Oriented Psychiatric: Yes: Alert, Oriented Labs: HSV/varicella Ab studies pending Problem List - Problems (1) Unilateral femoral hernia, with gangrene, not specified as recurrent Assessment/Plan: POD6 s/p repair via laparotomy with small bowel resection Pathology shows partial infarction of small bowel wall Pt doing well ambulating, voiding, bowel function has returned will stop colace with liquid BMs tolerating regular diet pain controlled - not using meds, nonnarcotics prn continue antibiotics per ID - will likely go home with Augmentin to complete course incision with antoine c/d/i Code(s): K41.40 - UNIL FEMORAL HERNIA, W GANGRENE, NOT SPECIFIED RECURRENT Qualifiers: Recurrence: non-recurrent Qualified Code(s): K41.40 - Unilateral femoral hernia, with gangrene, not specified as recurrent (2) Localized vesicular eruption Assessment/Plan: Pt denies personal history of oral or genital blisters Differential includes herpetic lesion, local shingles Dermatology Dr. Manzano may see tomorrow HSV and varicella Ig studies pending treating with Valtrex (plan 1g bid x 7 days) Code(s): R23.8 - OTHER SKIN CHANGES (3) HTN (hypertension) Assessment/Plan: home med resumed, IV prn stopped Code(s): I10 - ESSENTIAL (PRIMARY) HYPERTENSION Qualifiers: Hypertension type: essential hypertension Qualified Code(s): I10 - Essential (primary) hypertension
--- NOTE | 2017-11-14 19:08 | PN ---
Progress Note (short form) - Note Progress Note: Patient is feeling better. eating, tolerating diet well. Vital Signs Temperature 98.4 F 11/14/17 17:12 Pulse Rate 93 H 11/14/17 17:12 Respiratory Rate 20 11/14/17 17:12 Blood Pressure 112/72 11/14/17 17:12 O2 Sat by Pulse Oximetry (%) 100 11/14/17 09:00 CHEST: CTA BL Heart: S1S2 positive, no murmur is appreciated abdomen: soft, s/p surgical dressing removal as per surgeon. Site is clean, pustule lesions on Mons pubis area( at the shaving site) improving. ext: pulses are positive CBCD WBC 8.1 K/mm3 (4.0-10.0) 11/13/17 07:47 RBC 4.13 M/mm3 (3.60-5.2) 11/13/17 07:47 Hgb 12.2 GM/dL (10.7-15.3) 11/13/17 07:47 Hct 37.3 % (32.4-45.2) 11/13/17 07:47 MCV 90.2 fl (80-96) 11/13/17 07:47 MCHC 32.9 g/dl (32.0-36.0) 11/13/17 07:47 RDW 13.4 % (11.6-15.6) 11/13/17 07:47 Plt Count 162 K/MM3 (134-434) 11/13/17 07:47 MPV 10.4 fl (7.5-11.1) 11/13/17 07:47 CMP Sodium 139 mmol/L (136-145) 11/13/17 07:47 Potassium 3.8 mmol/L (3.5-5.1) 11/13/17 07:47 Chloride 104 mmol/L (98-107) 11/13/17 07:47 Carbon Dioxide 24 mmol/L (21-32) 11/13/17 07:47 Anion Gap 11 (8-16) 11/13/17 07:47 BUN 6 mg/dL (7-18) L D 11/13/17 07:47 Creatinine 0.8 mg/dL (0.55-1.02) 11/13/17 07:47 Creat Clearance w eGFR > 60 (>60) 11/13/17 07:47 Random Glucose 98 mg/dL (74-106) 11/13/17 07:47 Calcium 9.3 mg/dL (8.5-10.1) 11/13/17 07:47 Total Bilirubin 1.1 mg/dL (0.2-1.0) H 11/13/17 07:47 AST 23 U/L (15-37) D 11/13/17 07:47 ALT 32 U/L (12-78) D 11/13/17 07:47 Alkaline Phosphatase 72 U/L (45-117) 11/13/17 07:47 Total Protein 6.3 g/dl (6.4-8.2) L 11/13/17 07:47 Albumin 2.8 g/dl (3.4-5.0) L 11/13/17 07:47 Current Medications Generic Name Dose Route Start Last Admin Trade Name Freq PRN Reason Stop Dose Admin Acetaminophen 650 mg 11/13/17 13:49 11/13/17 21:22 Tylenol - PO 650 mg Q6H PRN Administration FEVER OR PAIN Amlodipine Besylate 5 mg 11/14/17 10:00 11/14/17 10:03 Norvasc - PO 5 mg DAILY ELYSSA Administration Bacitracin/Polymyxin B Sulfate 1 applic 11/13/17 22:00 11/14/17 10:04 Polysporin Ointment - TP 1 applic BID ELYSSA Administration Heparin Sodium (Porcine) 5,000 unit 11/08/17 22:00 11/14/17 13:41 Heparin - SQ 5,000 unit TID ELYSSA Administration Piperacillin Sod/Tazobactam 100 mls @ 200 mls/hr 11/08/17 20:00 11/14/17 17: 14 Sod 3.375 gm/ Dextrose IVPB 200 mls/hr Q8H-IV ELYSSA Administration Nicotine 14 mg 11/09/17 10:00 11/14/17 10:03 Nicoderm Patch - TD 14 mg DAILY ELYSSA Administration Ondansetron HCl 4 mg 11/09/17 11:59 Zofran Injection IVPB Q8H PRN NAUSEA Valacyclovir HCl 1,000 mg 11/13/17 22:00 11/14/17 10:04 Valtrex - PO 1,000 mg BID ELYSSA Administration Home Medications Medication Instructions Recorded Acetaminophen/Caffeine/Butalb 1 tab PO Q4H PRN 11/08/17 [Fioricet -] Amlodipine Besylate [Norvasc -] 5 mg PO DAILY 11/08/17 A/p: Patient is 67 y/o lady with h/o HTN, HTN urgency, and breast implants who presented with acute onset severe Abd pain and N/V, and was ofund ot have incarcerated inguinal hernia with SBO. Patient is tolerating diet. will continue IV antibiotic. # POD #6 s/p exploratory laparotomy with resection of small bowel and repair of Incarcerated femoral hernia As per operative note: patient went for exploratory laparotomy, reduction of strangulated small bowel from femoral canal, segmental resection of small bowel with primary stapled anastomosis, primary repair of femoral canal with operative findings of ischemic segment of mid ileum strangulated in femoral canal . On IV antibiotics empirically Zosyn continue ,OOB and ambulate .Continue to encourage incentive spirometer # Pustule lesion improving noted on the monspubis area ( as per nurse earlier of the day, patient has a lesion that looks more pustule than vesicular Further management as per ID. # Abdominal Xray ileus gas pattern, patient had BM. # HTN: Uncontrolled . Continue home BP meds. DVT px : heparin sq Visit type - Emergency Visit Emergency Visit: Yes ED Registration Date: 11/08/17 Care time: The patient presented to the Emergency Department on the above date and was hospitalized for further evaluation of their emergent condition. - New Patient This patient is new to me today: No - Critical Care Critical Care patient: No
[2017-11-15] MEDS: PIPERACILLIN/TAZOB 3.375 GM 3.375 GM in DEXTROSE 5%-WATER - 100 ML IVPB SCH ×2 (03:03→10:10)
[2017-11-15] MEDS: HEPARIN NA (PORCINE) 5,000 UNITS/ML 1ML VIAL SQ SCH ×2 (06:47→14:01)
[2017-11-15] MEDS ORDERED: PT OWN MED DRAWER 7, Y5N ONE (10:08)
[2017-11-15] MEDS: amLODIPine BESYLATE 5 MG TABLET (FP) PO SCH (10:10)
[2017-11-15] MEDS: NICOTINE 14 MG/24 HOURS TOPICAL PATCH TD SCH (10:10)
[2017-11-15] MEDS: valACYclovir HCL 500 MG TABLET (FP) PO SCH (10:10)
[2017-11-15] MEDS: BACITRACIN/POLYMYXIN B SULFATE 15 GM TUBE TP SCH (10:12)
[2017-11-15 10:41] VITALS: BP 117/70; PULSE 86; TEMP 98.9
--- NOTE | 2017-11-15 10:56 | PN ---
Progress Note, Physician Chief Complaint: right groin pain History of Present Illness: 67 you female PMH HTN, s/p breast augmentation and tubal ligation is DR presented to the emergency department with pain in the right groin for 12 hours and multiple 5-6 episodes of bilious vomiting. She has been stable postoperatively. She feels much better, tolerating diet, ambulating normal bowel habits, voiding, had a cutaneous rash left mons pubis that appeared after surgery was briefly painful and is being worked up and treated. - Current Medication List Current Medications: Active Medications Acetaminophen (Tylenol -) 650 mg PO Q6H PRN PRN Reason: FEVER OR PAIN Last Admin: 11/13/17 21:22 Dose: 650 mg Amlodipine Besylate (Norvasc -) 5 mg PO DAILY [facility] Last Admin: 11/15/17 10:10 Dose: 5 mg Bacitracin/Polymyxin B Sulfate (Polysporin Ointment -) 1 applic TP BID [facility] Last Admin: 11/15/17 10:12 Dose: 1 applic Heparin Sodium (Porcine) (Heparin -) 5,000 unit SQ TID [facility] Last Admin: 11/15/17 06:47 Dose: 5,000 unit Piperacillin Sod/Tazobactam (Sod 3.375 gm/ Dextrose) 100 mls @ 200 mls/hr IVPB Q8H-IV [facility] Last Admin: 11/15/17 10:10 Dose: 200 mls/hr Nicotine (Nicoderm Patch -) 14 mg TD DAILY [facility] Last Admin: 11/15/17 10:10 Dose: 14 mg Ondansetron HCl (Zofran Injection) 4 mg IVPB Q8H PRN PRN Reason: NAUSEA Valacyclovir HCl (Valtrex -) 1,000 mg PO BID [facility] Last Admin: 11/15/17 10:10 Dose: 1,000 mg - Objective Vital Signs: Vital Signs Temperature 98.9 F 11/15/17 10:00 Pulse Rate 86 11/15/17 10:00 Respiratory Rate 18 11/15/17 10:00 Blood Pressure 117/70 11/15/17 10:00 O2 Sat by Pulse Oximetry (%) 99 11/14/17 21:00 Vital Signs Period Temp Pulse Resp BP Sys/Cervantes Pulse Ox Last 24 Hr 98.0 F-99.0 F 74-95 18-20 112-124/63-95 99 Constitutional: Yes: Well Nourished, No Distress, Calm Eyes: Yes: Conjunctiva Clear, EOM Intact HENT: Yes: Atraumatic, Normocephalic Neck: Yes: Supple, Trachea Midline Cardiovascular: Yes: Regular Rate and Rhythm, S1, S2 Respiratory: Yes: Regular, CTA Bilaterally Gastrointestinal: Yes: Normal Bowel Sounds, Soft, Tenderness (roxy-incisonal), Other (healng lower midline incison) Genitourinary: No: CVA Tenderness - Left, CVA Tenderness - Right Musculoskeletal: No: Muscle Pain, Muscle Weakness Extremities: No: Calf Tenderness, Cool, Cyanosis Edema: No Peripheral Pulses WNL: Yes Peripheral Pulses: Left Doralis Pedis: 2+, Right Dorsalis Pedis: 2+ Integumentary: Yes: Rash (left upper mons pubis small vesicular rash) Wound/Incision: Yes: Well Approximated, [place] Intact. No: Draining, Reddened Neurological: Yes: Alert, Oriented Psychiatric: Yes: Alert, Oriented Labs: CBC, BMP 11/13/17 07:47 11/13/17 07:47 INR, PTT INR 1.01 (0.82-1.09) 11/08/17 07:30 Problem List - Problems (1) Unilateral femoral hernia, with gangrene, not specified as recurrent Assessment/Plan: 67 yo female with PMH HTN s/p breast augmentation surgery presents with acute onset abdominal pain and vomiting. Consistent with incarcerated possible strangulated femoral hernia on right. CT scan shows a loop of bowel. s/p exploratory laparotomy, ressection of small bowel and repair of femoral hernia POD#7 now passing flatus and having usual BM. Can be discharged home. Regular diet advise to chew well and avoid large undigestable plant matter empiric IV antibiotics adequate analgesia encourage incentive spirometer Agree with ID, Valtrex for 5days followup with Dr. Dinh in surgery clinic in 2 weeks Code(s): K41.40 - UNIL FEMORAL HERNIA, W GANGRENE, NOT SPECIFIED RECURRENT Qualifiers: Recurrence: non-recurrent Qualified Code(s): K41.40 - Unilateral femoral hernia, with gangrene, not specified as recurrent (2) Postoperative ileus Code(s): K91.89 - OTH POSTPROCEDURAL COMPLICATIONS AND DISORDERS OF DGSTV SYS; K56.7 - ILEUS, UNSPECIFIED (3) HTN (hypertension) Code(s): I10 - ESSENTIAL (PRIMARY) HYPERTENSION Qualifiers: Hypertension type: essential hypertension Qualified Code(s): I10 - Essential (primary) hypertension (4) Abdominal pain, right lower quadrant Code(s): R10.31 - RIGHT LOWER QUADRANT PAIN
--- NOTE | 2017-11-15 11:06 | PN ---
Progress Note, Physician History of Present Illness: patient doing well no complaints had bowel movement tolerating diet has developed small vesicles on the suprapubic region - Current Medication List Current Medications: Active Medications Acetaminophen (Tylenol -) 650 mg PO Q6H PRN PRN Reason: FEVER OR PAIN Last Admin: 11/13/17 21:22 Dose: 650 mg Amlodipine Besylate (Norvasc -) 5 mg PO DAILY [facility] Last Admin: 11/15/17 10:10 Dose: 5 mg Bacitracin/Polymyxin B Sulfate (Polysporin Ointment -) 1 applic TP BID [facility] Last Admin: 11/15/17 10:12 Dose: 1 applic Heparin Sodium (Porcine) (Heparin -) 5,000 unit SQ TID [facility] Last Admin: 11/15/17 06:47 Dose: 5,000 unit Nicotine (Nicoderm Patch -) 14 mg TD DAILY [facility] Last Admin: 11/15/17 10:10 Dose: 14 mg Ondansetron HCl (Zofran Injection) 4 mg IVPB Q8H PRN PRN Reason: NAUSEA Valacyclovir HCl (Valtrex -) 1,000 mg PO BID [facility] Last Admin: 11/15/17 10:10 Dose: 1,000 mg - Objective Vital Signs: Vital Signs Temperature 98.9 F 11/15/17 10:00 Pulse Rate 86 11/15/17 10:00 Respiratory Rate 18 11/15/17 10:00 Blood Pressure 117/70 11/15/17 10:00 O2 Sat by Pulse Oximetry (%) 99 11/14/17 21:00 Constitutional: Yes: No Distress, Calm Cardiovascular: Yes: Regular Rate and Rhythm Respiratory: Yes: Regular, CTA Bilaterally Gastrointestinal: Yes: Normal Bowel Sounds, Soft Musculoskeletal: Yes: WNL Extremities: Yes: WNL Wound/Incision: Yes: Clean/Dry Neurological: Yes: Alert, Oriented Psychiatric: Yes: Alert, Oriented Labs: CBC, BMP 11/13/17 07:47 11/13/17 07:47 INR, PTT INR 1.01 (0.82-1.09) 11/08/17 07:30 Assessment/Plan Problem List - Problems (1) Incarcerated femoral hernia Code(s): K41.30 - UNIL FEMORAL HERNIA, W OBST, W/O GANGRENE, NOT SPCF RECUR (2) Small bowel obstruction with strangulation or infarction Code(s): [id number] - (3) HTN (hypertension) Code(s): I10 - ESSENTIAL (PRIMARY) HYPERTENSION (4) Abdominal pain, right lower quadrant Code(s): R10.31 - RIGHT LOWER QUADRANT PAIN leukocytosis plan will stop all abx vesicles a bit worrisome i would suggest sending the patient on valtrex for couple of days rest follow up with primary and surgery
--- NOTE | 2017-11-15 13:25 | PN ---
Teaching Attending Note Name of Resident: Shannan Peter ATTENDING PHYSICIAN STATEMENT I saw and evaluated the patient. I reviewed the resident's note and discussed the case with the resident. I agree with the resident's findings and plan as documented. SUBJECTIVE: Patient is comfortable with no acute distress, no shortness of breath. Patient is feeling well. OBJECTIVE: Vital Signs Temperature 98.9 F 11/15/17 10:00 Pulse Rate 86 11/15/17 10:00 Respiratory Rate 18 11/15/17 10:00 Blood Pressure 117/70 11/15/17 10:00 O2 Sat by Pulse Oximetry (%) 100 11/15/17 09:00 CBCD WBC 8.1 K/mm3 (4.0-10.0) 11/13/17 07:47 RBC 4.13 M/mm3 (3.60-5.2) 11/13/17 07:47 Hgb 12.2 GM/dL (10.7-15.3) 11/13/17 07:47 Hct 37.3 % (32.4-45.2) 11/13/17 07:47 MCV 90.2 fl (80-96) 11/13/17 07:47 MCHC 32.9 g/dl (32.0-36.0) 11/13/17 07:47 RDW 13.4 % (11.6-15.6) 11/13/17 07:47 Plt Count 162 K/MM3 (134-434) 11/13/17 07:47 MPV 10.4 fl (7.5-11.1) 11/13/17 07:47 CMP Sodium 139 mmol/L (136-145) 11/13/17 07:47 Potassium 3.8 mmol/L (3.5-5.1) 11/13/17 07:47 Chloride 104 mmol/L (98-107) 11/13/17 07:47 Carbon Dioxide 24 mmol/L (21-32) 11/13/17 07:47 Anion Gap 11 (8-16) 11/13/17 07:47 BUN 6 mg/dL (7-18) L D 11/13/17 07:47 Creatinine 0.8 mg/dL (0.55-1.02) 11/13/17 07:47 Creat Clearance w eGFR > 60 (>60) 11/13/17 07:47 Random Glucose 98 mg/dL (74-106) 11/13/17 07:47 Calcium 9.3 mg/dL (8.5-10.1) 11/13/17 07:47 Total Bilirubin 1.1 mg/dL (0.2-1.0) H 11/13/17 07:47 AST 23 U/L (15-37) D 11/13/17 07:47 ALT 32 U/L (12-78) D 11/13/17 07:47 Alkaline Phosphatase 72 U/L (45-117) 11/13/17 07:47 Total Protein 6.3 g/dl (6.4-8.2) L 11/13/17 07:47 Albumin 2.8 g/dl (3.4-5.0) L 11/13/17 07:47 Current Medications Generic Name Dose Route Start Last Admin Trade Name Freq PRN Reason Stop Dose Admin Acetaminophen 650 mg 11/13/17 13:49 11/13/17 21:22 Tylenol - PO 650 mg Q6H PRN Administration FEVER OR PAIN Amlodipine Besylate 5 mg 11/14/17 10:00 11/15/17 10:10 Norvasc - PO 5 mg DAILY ELYSSA Administration Bacitracin/Polymyxin B Sulfate 1 applic 11/13/17 22:00 11/15/17 10:12 Polysporin Ointment - TP 1 applic BID ELYSSA Administration Heparin Sodium (Porcine) 5,000 unit 11/08/17 22:00 11/15/17 06:47 Heparin - SQ 5,000 unit TID ELYSSA Administration Nicotine 14 mg 11/09/17 10:00 11/15/17 10:10 Nicoderm Patch - TD 14 mg DAILY ELYSSA Administration Ondansetron HCl 4 mg 11/09/17 11:59 Zofran Injection IVPB Q8H PRN NAUSEA Valacyclovir HCl 1,000 mg 11/13/17 22:00 11/15/17 10:10 Valtrex - PO 1,000 mg BID ELYSSA Administration Home Medications Medication Instructions Recorded Acetaminophen/Caffeine/Butalb 1 tab PO Q4H PRN 11/08/17 [Fioricet -] Amlodipine Besylate [Norvasc -] 5 mg PO DAILY 11/08/17 Valacyclovir HCl [Valtrex -] 1,000 mg PO BID #8 tablet 11/15/17 PE: CHEST: CTA BL Heart: S1S2 positive, no murmur is appreciated abdomen: soft, s/p surgical dressing removal as per surgeon. Site is clean, pustule lesion improving on Mons pubis area( at the shaving site) very minimal. ext: pulses are positive ASSESSMENT AND PLAN: Patient is 67 y/o lady with h/o HTN, HTN urgency, and breast implants who presented with acute onset of severe Abd pain with N/V, and was found to have incarcerated inguinal hernia with SBO. Patient is tolerating diet. # POD #8 s/p exploratory laparotomy with resection of small bowel and repair of Incarcerated femoral hernia As per operative note: patient went for exploratory laparotomy, reduction of strangulated small bowel from femoral canal, segmental resection of small bowel with primary stapled anastomosis, primary repair of femoral canal with operative findings of ischemic segment of mid ileum strangulated in femoral canal . completed IV antibiotics Zosyn . Continue incentive spirometer at home. # Pustule lesion improving noted on the monspubis area , as per ID to discharge the patient home on Valtrex 4 more days. # HTN: Uncontrolled . Continue home BP meds. DVT px : heparin sq
--- NOTE | 2017-11-15 14:02 | DS ---
Physical Exam: SUBJECTIVE: Patient seen and examined OBJECTIVE: Vital Signs Period Temp Pulse Resp BP Sys/Cervantes Pulse Ox Last 24 Hr 98.4 F-99.0 F 74-93 18-20 112-124/63-72 99-100 PHYSICAL EXAM GENERAL: The patient is awake, alert, and fully oriented, in no acute distress. HEAD: Normal with no signs of trauma. EYES: PERRL, extraocular movements intact, sclera anicteric, conjunctiva clear. ENT: Ears normal, nares patent, oropharynx clear without exudates, moist mucous membranes. NECK: Trachea midline, full range of motion, supple. LUNGS: Breath sounds equal, clear to auscultation bilaterally, no wheezes, no crackles, no accessory muscle use. HEART: Regular rate and rhythm, S1, S2 without murmur, rub or gallop. ABDOMEN: Soft, nontender, nondistended, normoactive bowel sounds, no guarding, no rebound, no hepatosplenomegaly, no masses. EXTREMITIES: 2+ pulses, warm, well-perfused, no edema. NEUROLOGICAL: Cranial nerves II through XII grossly intact. Normal speech, gait not observed. PSYCH: Normal mood, normal affect. SKIN: Warm, dry, normal turgor, no rashes or lesions noted. LABS HOSPITAL COURSE: Date of Admission:11/08/17 Date of Discharge: 11/15/17 Discharge Summary Reason For Visit: INCARCERATED FEMORAL HERNIA Current Active Problems Localized vesicular eruption (Acute) HTN (hypertension) (Chronic) Condition: Stable - Instructions Diet, Activity, Other Instructions: DR. WINCHESTER' DISCHARGE INSTRUCTIONS: Postoperative instructions: You had a small bowel resection and repair of femoral hernia on 11/08/[address] Luis Winchester of [facility]. Activity: Resume your usual activities gradually, but no heavy exertion or lifting more than 10-15 pounds for 4-6 weeks. Remove dressings 48 hours after surgery, if they are not already off. You may shower daily starting then, just pat the incision areas dry. [place] should not need to be recovered with any dressings, unless you have been told otherwise. Eat lightly at first, but advance to your usual diet as tolerated. Pain: For pain, you may use and alternate Tylenol (acetaminophen) and/or ibuprofen every 6 hours each as needed; this means that you can take one OR the other at 3-hour intervals. If you are prescribed a Tylenol/narcotic combination for severe pain, use it instead of plain Tylenol as needed and switch back when your pain starts decreasing. Do not take more than 4000mg of acetaminophen in a day. Take medications as prescribed or indicated on the labeling. Follow-up: Call Dr. Winchester' office at [phone] to make your postop appointment (Wednesday 1-2 weeks after surgery as advised). Clinic is held in the [facility] on the first floor of [facility]. Call the office if you have: * increasing pain not responsive to pain medication * fever of 101F or higher * vomiting * unusual or increasing bleeding or drainage from wounds * increasing redness or swelling at wound sites * inability to urinate MEDICINE DISCHARGE INSTRUCTIONS: Medications: -Please continue your regular home medications with the following addition: (1) Valtrex 1000mg two times per day. Your first dose will be tomorrow, and take for 4 days Follow-up: -Please see your primary care physician for post-hospitalization evaluation in 1 -2 weeks. Let them know that a small lesion was seen in your right kidney on CT imaging, which should be evaluated with MRI. Please return to the Emergency Department if you have worsening abdominal pain, fever, chills, swelling or drainage from the surgical site, or any new or concerning symptoms. Referrals: Jose Ibrahim MD [Staff Physician] - 2 Weeks Luis Winchester MD [Staff Physician] - 2 Weeks Disposition: HOME - Home Medications Comprehensive Discharge Medication List: Ambulatory Orders Acetaminophen/Caffeine/Butalb [Fioricet -] 1 tab PO Q4H PRN 11/08/17 Amlodipine Besylate [Norvasc -] 5 mg PO DAILY 11/08/17 Valacyclovir HCl [Valtrex -] 1,000 mg PO BID #8 tablet 11/15/17
[2017-11-16 16:23] LABS: VARICELLA-ZOSTER IGM < 0.91 index (0.00-0.90)
== END 2017-11-15 15:29 | disposition home or self-care (01) | DRG 221 ==
LOC: JER 06:49 → JERBED 12:03 → J8W 19:11
PROVIDERS: ADMIT Internal Medicine; ATTEND Internal Medicine
PROC: 0D1B0ZB Bypass Ileum to Ileum, Open Approach (ICD-10-PCS; 2017-11-08)
PROC: 0YQ70ZZ Repair Right Femoral Region, Open Approach (ICD-10-PCS; principal; 2017-11-08 14:00)
DX: K41.40 Unilateral femoral hernia, with gangrene, not specified as recurrent (principal); I10 Essential (primary) hypertension; F17.210 Nicotine dependence, cigarettes, uncomplicated; K91.89 Other postprocedural complications and disorders of digestive system; Y83.8 Other surgical procedures as the cause of abnormal reaction of the patient, or of later complication, without mention of misadventure at the time of the procedure; R10.31 Right lower quadrant pain; A60.00 Herpesviral infection of urogenital system, unspecified; E87.6 Hypokalemia; R23.8 Other skin changes; D72.829 Elevated white blood cell count, unspecified; R30.0 Dysuria; K56.7 Ileus, unspecified
CPT/HCPCS: 36415; 71045-TC; 74019-TC; 74177-TC; 80048; 80053; 81003; 81015; 83735; 85025; 85027; 85610; 86694; 86695; 86696; 86787; 86850; 86900; 86901; 88305-TC; 93005; 93010; 94760; 99284-25; J1644